=== PATIENT | male | born 1950 | race Asian ===

== ENCOUNTER 2018-09-08 04:15 | Inpatient (IN) | payer OTHER ==
[2018-09-08] MEDS ORDERED: morphine 2 MG INJ IV (05:30)
[2018-09-08] MEDS ORDERED: NACL 0.9% 3 ML SYG IV (05:30)
[2018-09-08] MEDS: HEPARIN 5,000 UNIT/1 ML VIAL SC ×3 (07:02→22:36)
[2018-09-08] MEDS ORDERED: GLUCOSE GEL 15 GRAM TUBE PO ×2 (13:00)
[2018-09-08] MEDS ORDERED: GLUCAGON 1 MG INJ IM (13:00)
[2018-09-08] MEDS ORDERED: DEXTROSE 50% 50 ML SYRINGE IV ×2 (13:00)
[2018-09-08] MEDS ORDERED: GLUCOSE GEL 15 GRAM TUBE BUCCAL (13:00)
[2018-09-08] MEDS: METOPROLOL 25 MG TAB PO ×2 (13:20→21:02)
[2018-09-08] MEDS: ASPIRIN (EC) 81 MG TAB PO (13:20)
[2018-09-08] MEDS: LISINOPRIL 20 MG TAB PO (13:20)
[2018-09-08] MEDS: INSULIN GLARGINE [LANTus] (100 UNITS/ML) SYG SC (15:11)
[2018-09-08] MEDS: INSULIN ASPART [NOVOLOG] 3 ML PEN SC ×4 (15:23→21:10)
[2018-09-08] MEDS: PANTOPRAZOLE (EC) 40 MG TAB PO (15:24)
[2018-09-08] MEDS: ATORVASTATIN 40 MG TAB PO (21:02)
[2018-09-09] MEDS: ACCU-CHEK XX (02:31)
[2018-09-09] MEDS: PANTOPRAZOLE (EC) 40 MG TAB PO (05:51)
[2018-09-09] MEDS: HEPARIN 5,000 UNIT/1 ML VIAL SC ×3 (05:57→22:11)
[2018-09-09] MEDS: INSULIN ASPART [NOVOLOG] 3 ML PEN SC ×7 (07:41→22:12)
[2018-09-09] MEDS: INSULIN GLARGINE [LANTus] (100 UNITS/ML) SYG SC (08:11)
[2018-09-09] MEDS: HYDROCODONE/APAP (5/325) TAB PO (08:15)
[2018-09-09] MEDS: METOPROLOL 25 MG TAB PO ×2 (12:26→20:21)
[2018-09-09] MEDS: LISINOPRIL 20 MG TAB PO (12:27)
[2018-09-09] MEDS: ASPIRIN (EC) 81 MG TAB PO (12:27)
[2018-09-09] MEDS: ATORVASTATIN 40 MG TAB PO (20:20)
[2018-09-10] MEDS: ACETAMINOPHEN 325 MG TAB PO ×2 (00:09→20:28)
[2018-09-10] MEDS: ONDANSETRON 4 MG INJ IV (00:09)
[2018-09-10] MEDS: ACCU-CHEK XX (02:00)
[2018-09-10] MEDS: PANTOPRAZOLE (EC) 40 MG TAB PO (06:55)
[2018-09-10] MEDS: HEPARIN 5,000 UNIT/1 ML VIAL SC ×3 (07:00→21:22)
[2018-09-10] MEDS: ASPIRIN (EC) 81 MG TAB PO (08:29)
[2018-09-10] MEDS: METOPROLOL 25 MG TAB PO ×2 (08:30→20:18)
[2018-09-10] MEDS: LISINOPRIL 20 MG TAB PO (08:30)
[2018-09-10] MEDS: INSULIN ASPART [NOVOLOG] 3 ML PEN SC ×7 (08:32→20:37)
[2018-09-10] MEDS: INSULIN GLARGINE [LANTus] (100 UNITS/ML) SYG SC (08:33)
[2018-09-10] MEDS: ATORVASTATIN 40 MG TAB PO (20:17)
[2018-09-11] MEDS: ACCU-CHEK XX (01:58)
[2018-09-11] MEDS: PANTOPRAZOLE (EC) 40 MG TAB PO (05:31)
[2018-09-11] MEDS: HEPARIN 5,000 UNIT/1 ML VIAL SC ×3 (05:39→21:17)
[2018-09-11] MEDS: LISINOPRIL 20 MG TAB PO (07:39)
[2018-09-11] MEDS: ASPIRIN (EC) 81 MG TAB PO (07:40)
[2018-09-11] MEDS: METOPROLOL 25 MG TAB PO ×2 (07:40→20:23)
[2018-09-11] MEDS: INSULIN GLARGINE [LANTus] (100 UNITS/ML) SYG SC (07:50)
[2018-09-11] MEDS: INSULIN ASPART [NOVOLOG] 3 ML PEN SC ×8 (07:50→21:12)
[2018-09-11 11:58] LABS: HEMOGLOBIN A1C 11.9 % (0-5.9)
[2018-09-11] MEDS: ATORVASTATIN 40 MG TAB PO (20:23)
[2018-09-11] MEDS ORDERED: morphine LIQ (10 MG/5 ML) CUP PO (22:00)
[2018-09-12] MEDS: ACCU-CHEK XX (02:01)
[2018-09-12 05:24] LABS: ADD MAN DIFF? NO
[2018-09-12 05:27] LABS: WHITE BLOOD COUNT 9.5 10^3/ul (4.8-10.8)
[2018-09-12 05:27] LABS: BASOPHILS % 0.4 % (0.0-2.0); EOSINOPHILS # 0.3 10^3/ul (0.0-0.5); EOSINOPHILS % 3.4 % (0.0-7.0); HEMATOCRIT 33.4 % (42.0-52.0); HEMOGLOBIN 11.3 g/dl (14.0-18.0); LYMPHOCYTES # 2.7 10^3/ul (0.8-2.9); MEAN CORPUSCULAR HGB CONC 33.8 g/dl (32.0-37.0); MEAN CORPUSCULAR VOLUME 85.6 fl (82.0-101.0); MEAN PLATELET VOLUME 10.2 fl (7.4-10.4); MONOCYTE # 0.7 10^3/ul (0.3-0.9); MONOCYTES % 6.9 % (0.0-11.0); NEUTROPHIL # 5.8 10^3/ul (1.6-7.5); NEUTROPHILS % 60.9 % (39.0-77.0); PLATELET COUNT 209 10^3/UL (140-415); RED CELL DISTRIBUTION WIDTH 11.6 % (11.5-14.5)
[2018-09-12] MEDS: PANTOPRAZOLE (EC) 40 MG TAB PO (05:31)
[2018-09-12] MEDS: HEPARIN 5,000 UNIT/1 ML VIAL SC ×3 (05:35→21:32)
[2018-09-12 05:47] LABS: ANION GAP 14 (5-13); BLOOD UREA NITROGEN 18 mg/dl (7-20); CALCIUM 9.4 mg/dl (8.4-10.2); CARBON DIOXIDE 25 mmol/L (21-31); CHLORIDE 101 mmol/L (97-110); CREATININE 0.94 mg/dl (0.61-1.24); Estimated GFR > 60 mL/min (>60); GLUCOSE 190 mg/dl (70-220); POTASSIUM 4.4 mmol/L (3.5-5.1); SODIUM 140 mmol/L (135-144)
[2018-09-12 05:50] LABS: PHOSPHORUS 3.3 mg/dl (2.5-4.9)
[2018-09-12 05:50] LABS: MAGNESIUM 1.9 mg/dl (1.7-2.5)
[2018-09-12] MEDS: ASPIRIN (EC) 81 MG TAB PO (07:58)
[2018-09-12] MEDS: METOPROLOL 25 MG TAB PO ×2 (07:59→21:11)
[2018-09-12] MEDS: LISINOPRIL 20 MG TAB PO (07:59)
[2018-09-12] MEDS: INSULIN GLARGINE [LANTus] (100 UNITS/ML) SYG SC (08:08)
[2018-09-12] MEDS: INSULIN ASPART [NOVOLOG] 3 ML PEN SC ×7 (08:08→21:00)
[2018-09-12] MEDS ORDERED: SALINE 0.65% 45 ML NAS SPRAY NASAL (10:30)
[2018-09-12] MEDS: GUAIFENESIN LA 600 MG TABSR PO ×2 (11:49→21:10)
[2018-09-12] MEDS: ATORVASTATIN 40 MG TAB PO (21:11)
[2018-09-13] MEDS: ACCU-CHEK XX (02:00)
[2018-09-13 05:46] LABS: ADD MAN DIFF? NO
[2018-09-13 05:49] LABS: WHITE BLOOD COUNT 9.7 10^3/ul (4.8-10.8)
[2018-09-13 05:49] LABS: BASOPHILS % 0.4 % (0.0-2.0); EOSINOPHILS # 0.3 10^3/ul (0.0-0.5); EOSINOPHILS % 2.8 % (0.0-7.0); HEMATOCRIT 34.5 % (42.0-52.0); HEMOGLOBIN 11.7 g/dl (14.0-18.0); LYMPHOCYTES # 2.8 10^3/ul (0.8-2.9); LYMPHOCYTES % 28.5 % (15.0-51.0); MEAN CORPUSCULAR HGB CONC 33.9 g/dl (32.0-37.0); MEAN CORPUSCULAR VOLUME 85.4 fl (82.0-101.0); MEAN PLATELET VOLUME 10.1 fl (7.4-10.4); MONOCYTE # 0.7 10^3/ul (0.3-0.9); MONOCYTES % 7.3 % (0.0-11.0); NEUTROPHIL # 5.9 10^3/ul (1.6-7.5); NEUTROPHILS % 60.7 % (39.0-77.0); PLATELET COUNT 213 10^3/UL (140-415); RED BLOOD COUNT 4.04 10^6/ul (4.70-6.10); RED CELL DISTRIBUTION WIDTH 11.9 % (11.5-14.5)
[2018-09-13] MEDS: PANTOPRAZOLE (EC) 40 MG TAB PO (06:12)
[2018-09-13] MEDS: HEPARIN 5,000 UNIT/1 ML VIAL SC ×3 (06:18→22:23)
[2018-09-13 06:22] LABS: ALBUMIN 3.6 g/dl (3.3-4.9); ANION GAP 6 (5-13); BLOOD UREA NITROGEN 14 mg/dl (7-20); CALCIUM 9.4 mg/dl (8.4-10.2); CARBON DIOXIDE 27 mmol/L (21-31); CHLORIDE 107 mmol/L (97-110); CREATININE 0.85 mg/dl (0.61-1.24); GLUCOSE 153 mg/dl (70-220); PHOSPHORUS 3.4 mg/dl (2.5-4.9); POTASSIUM 4.2 mmol/L (3.5-5.1); SODIUM 140 mmol/L (135-144)
[2018-09-13] MEDS: METOPROLOL 25 MG TAB PO ×2 (08:27→21:02)
[2018-09-13] MEDS: ASPIRIN (EC) 81 MG TAB PO (08:27)
[2018-09-13] MEDS: GUAIFENESIN LA 600 MG TABSR PO ×2 (08:27→21:01)
[2018-09-13] MEDS: LISINOPRIL 20 MG TAB PO (08:27)
[2018-09-13] MEDS: INSULIN ASPART [NOVOLOG] 3 ML PEN SC ×7 (08:41→21:00)
[2018-09-13] MEDS: INSULIN GLARGINE [LANTus] (100 UNITS/ML) SYG SC (08:41)
[2018-09-13] MEDS: ATORVASTATIN 40 MG TAB PO (21:01)
[2018-09-14] MEDS: ACCU-CHEK XX (02:00)
[2018-09-14] MEDS: PANTOPRAZOLE (EC) 40 MG TAB PO (05:36)
[2018-09-14] MEDS: HEPARIN 5,000 UNIT/1 ML VIAL SC ×4 (06:00→21:35)
[2018-09-14 06:12] LABS: ADD MAN DIFF? NO
[2018-09-14 06:23] LABS: BASOPHILS % 0.4 % (0.0-2.0); EOSINOPHILS # 0.3 10^3/ul (0.0-0.5); EOSINOPHILS % 2.7 % (0.0-7.0); HEMATOCRIT 32.9 % (42.0-52.0); HEMOGLOBIN 11.2 g/dl (14.0-18.0); LYMPHOCYTES # 3.3 10^3/ul (0.8-2.9); MEAN CORPUSCULAR HEMOGLOBIN 29.5 pg (29.0-33.0); MEAN CORPUSCULAR VOLUME 86.6 fl (82.0-101.0); MEAN PLATELET VOLUME 10.2 fl (7.4-10.4); MONOCYTE # 0.7 10^3/ul (0.3-0.9); NEUTROPHIL # 6.2 10^3/ul (1.6-7.5); NEUTROPHILS % 58.5 % (39.0-77.0); PLATELET COUNT 201 10^3/UL (140-415); RED CELL DISTRIBUTION WIDTH 11.8 % (11.5-14.5)
[2018-09-14 06:23] LABS: WHITE BLOOD COUNT 10.6 10^3/ul (4.8-10.8)
[2018-09-14] MEDS ORDERED: INSULIN HUMAN REGULAR 100 UNIT in SOD CHLORIDE 0.9% 99 ML IV (07:00)
[2018-09-14] MEDS ORDERED: PHENYLephrine 20MG IN 250 ML 250 ML IV (07:00)
[2018-09-14] MEDS ORDERED: EPINEPHrine 4 MG in DEXTROSE 5% 246 ML IV (07:00)
[2018-09-14 07:05] LABS: ALBUMIN 3.4 g/dl (3.3-4.9); ANION GAP 11 (5-13); BLOOD UREA NITROGEN 18 mg/dl (7-20); CALCIUM 9.3 mg/dl (8.4-10.2); CARBON DIOXIDE 25 mmol/L (21-31); CHLORIDE 102 mmol/L (97-110); CREATININE 0.94 mg/dl (0.61-1.24); GLUCOSE 217 mg/dl (70-220); MAGNESIUM 1.9 mg/dl (1.7-2.5); PHOSPHORUS 3.5 mg/dl (2.5-4.9); POTASSIUM 4.3 mmol/L (3.5-5.1); SODIUM 138 mmol/L (135-144)
[2018-09-14] MEDS: INSULIN ASPART [NOVOLOG] 3 ML PEN SC ×7 (07:48→21:00)
[2018-09-14] MEDS: INSULIN GLARGINE [LANTus] (100 UNITS/ML) SYG SC (07:50)
[2018-09-14] MEDS: GUAIFENESIN LA 600 MG TABSR PO ×2 (09:00→21:21)
[2018-09-14] MEDS: ASPIRIN (EC) 81 MG TAB PO (09:00)
[2018-09-14] MEDS: LISINOPRIL 20 MG TAB PO (10:33)
[2018-09-14] MEDS: METOPROLOL 25 MG TAB PO ×2 (10:39→21:21)
[2018-09-14] MEDS ORDERED: IODIXANOL LOCM 100 ML BTL (15:14)
[2018-09-14] MEDS ORDERED: NITROGLYCERIN (IC) 100 MCG/ML INJ (15:14)
[2018-09-14] MEDS ORDERED: LIDOCAINE 1% (MDV) 20 ML INJ (15:14)
[2018-09-14] MEDS ORDERED: HEPARIN 1000 UNITS/ML 10 ML INJ (15:14)
[2018-09-14] MEDS ORDERED: MIDAZOLAM 1 MG/ML 2 ML INJ (15:14)
[2018-09-14] MEDS ORDERED: VERAPAMIL 5 MG INJ ×2 (15:14→15:17)
[2018-09-14] MEDS ORDERED: SOD CHLORIDE 0.9% 500 ML (15:17)
[2018-09-14] MEDS ORDERED: BIVALIRUDIN 250MG /NS 50 ML 50 ML IVPB (15:24)
[2018-09-14] MEDS ORDERED: FENTAnyl 50 MCG/ML VIAL (15:24)
[2018-09-14] MEDS ORDERED: PHENYLephrine (100 MCG/ML) 5ML SYG (15:35)
[2018-09-14] MEDS ORDERED: ATROPINE 1 MG/10 ML SYRINGE (16:19)
[2018-09-14] MEDS: ISOSORBIDE DINITRATE 20 MG TAB PO (17:31)
[2018-09-14] MEDS: SOD CHLORIDE 0.9% 1,000 ML IV (18:23)
[2018-09-14] MEDS: ATORVASTATIN 40 MG TAB PO (21:20)
[2018-09-15] MEDS: ACCU-CHEK XX (02:00)
[2018-09-15] MEDS: PANTOPRAZOLE (EC) 40 MG TAB PO (05:53)
[2018-09-15] MEDS: HEPARIN 5,000 UNIT/1 ML VIAL SC ×3 (05:59→21:22)
[2018-09-15 06:06] LABS: ADD MAN DIFF? NO
[2018-09-15 06:28] LABS: BASOPHILS % 0.3 % (0.0-2.0); EOSINOPHILS # 0.1 10^3/ul (0.0-0.5); EOSINOPHILS % 0.6 % (0.0-7.0); HEMATOCRIT 32.5 % (42.0-52.0); HEMOGLOBIN 11.2 g/dl (14.0-18.0); LYMPHOCYTES # 1.6 10^3/ul (0.8-2.9); LYMPHOCYTES % 14.4 % (15.0-51.0); MEAN CORPUSCULAR HEMOGLOBIN 29.6 pg (29.0-33.0); MEAN CORPUSCULAR HGB CONC 34.5 g/dl (32.0-37.0); MEAN PLATELET VOLUME 10.2 fl (7.4-10.4); MONOCYTE # 0.7 10^3/ul (0.3-0.9); MONOCYTES % 6.7 % (0.0-11.0); NEUTROPHIL # 8.6 10^3/ul (1.6-7.5); NEUTROPHILS % 77.7 % (39.0-77.0); PLATELET COUNT 221 10^3/UL (140-415); RED BLOOD COUNT 3.78 10^6/ul (4.70-6.10); RED CELL DISTRIBUTION WIDTH 11.8 % (11.5-14.5)
[2018-09-15 06:45] LABS: ALANINE AMINOTRANSFERASE 26 IU/L (13-69); ALBUMIN 3.6 g/dl (3.3-4.9); ALBUMIN/GLOBULIN RATIO 1.09; ALKALINE PHOSPHATASE 107 IU/L (42-121); ANION GAP 11 (5-13); ASPARTATE AMINO TRANSFERASE 27 IU/L (15-46); BILIRUBIN,INDIRECT 0.8 mg/dl (0-1.1); BILIRUBIN,TOTAL 0.8 mg/dl (0.2-1.3); BLOOD UREA NITROGEN 18 mg/dl (7-20); CALCIUM 9.4 mg/dl (8.4-10.2); CARBON DIOXIDE 23 mmol/L (21-31); CHLORIDE 107 mmol/L (97-110); CREATININE 0.98 mg/dl (0.61-1.24); Estimated GFR > 60 mL/min (>60); GLUCOSE 215 mg/dl (70-220); POTASSIUM 4.2 mmol/L (3.5-5.1); SODIUM 141 mmol/L (135-144); TOTAL PROTEIN 6.9 g/dl (6.1-8.1)
[2018-09-15 07:16] LABS: ALBUMIN 3.5 g/dl (3.3-4.9); ANION GAP 9 (5-13); BLOOD UREA NITROGEN 17 mg/dl (7-20); CALCIUM 9.4 mg/dl (8.4-10.2); CARBON DIOXIDE 23 mmol/L (21-31); CHLORIDE 105 mmol/L (97-110); CREATININE 0.98 mg/dl (0.61-1.24); GLUCOSE 214 mg/dl (70-220); MAGNESIUM 1.7 mg/dl (1.7-2.5); PHOSPHORUS 3.1 mg/dl (2.5-4.9); POTASSIUM 4.3 mmol/L (3.5-5.1); SODIUM 137 mmol/L (135-144)
[2018-09-15] MEDS: GUAIFENESIN LA 600 MG TABSR PO ×2 (08:13→20:16)
[2018-09-15] MEDS: ASPIRIN (EC) 81 MG TAB PO (08:13)
[2018-09-15] MEDS: METOPROLOL 25 MG TAB PO ×2 (08:13→20:10)
[2018-09-15] MEDS: LISINOPRIL 20 MG TAB PO (08:13)
[2018-09-15] MEDS: ISOSORBIDE DINITRATE 20 MG TAB PO ×2 (08:14→20:10)
[2018-09-15] MEDS: INSULIN ASPART [NOVOLOG] 3 ML PEN SC ×7 (08:30→20:25)
[2018-09-15] MEDS: INSULIN GLARGINE [LANTus] (100 UNITS/ML) SYG SC (08:30)
[2018-09-15] MEDS: ONDANSETRON 4 MG INJ IV (08:46)
[2018-09-15] MEDS: ATORVASTATIN 40 MG TAB PO (20:09)
[2018-09-16] MEDS: ACCU-CHEK XX (01:46)
[2018-09-16] MEDS: PANTOPRAZOLE (EC) 40 MG TAB PO (05:39)
[2018-09-16] MEDS: HEPARIN 5,000 UNIT/1 ML VIAL SC ×3 (05:46→21:22)
[2018-09-16] MEDS: GUAIFENESIN LA 600 MG TABSR PO ×2 (08:11→21:09)
[2018-09-16] MEDS: ASPIRIN (EC) 81 MG TAB PO (08:11)
[2018-09-16] MEDS: METOPROLOL 25 MG TAB PO ×2 (08:12→21:09)
[2018-09-16] MEDS: ISOSORBIDE DINITRATE 20 MG TAB PO ×2 (08:12→21:09)
[2018-09-16] MEDS: LISINOPRIL 20 MG TAB PO (08:12)
[2018-09-16] MEDS: INSULIN ASPART [NOVOLOG] 3 ML PEN SC ×7 (08:20→21:23)
[2018-09-16] MEDS: INSULIN GLARGINE [LANTus] (100 UNITS/ML) SYG SC (08:20)
[2018-09-16] MEDS: ATORVASTATIN 40 MG TAB PO (21:09)
[2018-09-17] MEDS: ACCU-CHEK XX ×4 (02:50→23:00)
[2018-09-17] MEDS: PANTOPRAZOLE (EC) 40 MG TAB PO (05:15)
[2018-09-17 05:31] LABS: ADD MAN DIFF? NO
[2018-09-17 05:55] LABS: BASOPHILS % 0.3 % (0.0-2.0); EOSINOPHILS # 0.1 10^3/ul (0.0-0.5); EOSINOPHILS % 1.1 % (0.0-7.0); HEMATOCRIT 29.3 % (42.0-52.0); LYMPHOCYTES # 1.9 10^3/ul (0.8-2.9); LYMPHOCYTES % 15.7 % (15.0-51.0); MEAN CORPUSCULAR HEMOGLOBIN 29.3 pg (29.0-33.0); MEAN CORPUSCULAR HGB CONC 34.1 g/dl (32.0-37.0); MEAN CORPUSCULAR VOLUME 85.9 fl (82.0-101.0); MONOCYTES % 8.3 % (0.0-11.0); NEUTROPHIL # 8.7 10^3/ul (1.6-7.5); NEUTROPHILS % 74.1 % (39.0-77.0); PLATELET COUNT 183 10^3/UL (140-415); RED BLOOD COUNT 3.41 10^6/ul (4.70-6.10); RED CELL DISTRIBUTION WIDTH 11.5 % (11.5-14.5)
[2018-09-17 05:55] LABS: WHITE BLOOD COUNT 11.8 10^3/ul (4.8-10.8)
[2018-09-17 06:10] LABS: ALBUMIN 3.2 g/dl (3.3-4.9); ANION GAP 8 (5-13); BLOOD UREA NITROGEN 18 mg/dl (7-20); CALCIUM 9.1 mg/dl (8.4-10.2); CARBON DIOXIDE 24 mmol/L (21-31); CHLORIDE 103 mmol/L (97-110); CREATININE 1.08 mg/dl (0.61-1.24); GLUCOSE 329 mg/dl (70-220); MAGNESIUM 1.7 mg/dl (1.7-2.5); PHOSPHORUS 3.1 mg/dl (2.5-4.9); POTASSIUM 4.7 mmol/L (3.5-5.1); SODIUM 135 mmol/L (135-144)
[2018-09-17] MEDS ORDERED: TRANEXAMIC ACID 1,000 MG/10 ML VIAL (07:00)
[2018-09-17] MEDS ORDERED: MILRINONE LACTATE 20 MG/D5W 100 ML BAG (07:00)
[2018-09-17] MEDS ORDERED: EPINEPHrine 4 MG in DEXTROSE 5% 246 ML IV (07:00)
[2018-09-17] MEDS ORDERED: NA BICARBONATE 8.4% 50 ML SYG ×3 (07:00→18:16)
[2018-09-17] MEDS ORDERED: AMINOCAPROIC ACID 5 GM INJ ×2 (07:00→12:37)
[2018-09-17] MEDS ORDERED: INSULIN HUMAN REGULAR 100 UNIT in SOD CHLORIDE 0.9% 99 ML IV (07:00)
[2018-09-17] MEDS ORDERED: PHENYLephrine 20MG IN 250 ML 250 ML IV (07:00)
[2018-09-17] MEDS ORDERED: DOBUTamine/D5W 1 MG/ML 250 ML DRIP (07:00)
[2018-09-17] MEDS: ACETAMINOPHEN 325 MG TAB PO (07:42)
[2018-09-17] MEDS: INSULIN GLARGINE [LANTus] (100 UNITS/ML) SYG SC (07:50)
[2018-09-17] MEDS: INSULIN ASPART [NOVOLOG] 3 ML PEN SC ×4 (08:00→11:53)
[2018-09-17] MEDS: METOPROLOL 25 MG TAB PO ×2 (08:39→21:00)
[2018-09-17] MEDS: GUAIFENESIN LA 600 MG TABSR PO ×2 (08:40→21:00)
[2018-09-17] MEDS: ISOSORBIDE DINITRATE 20 MG TAB PO ×2 (08:40→21:00)
[2018-09-17] MEDS: LISINOPRIL 20 MG TAB PO (08:40)
[2018-09-17] MEDS: ASPIRIN (EC) 81 MG TAB PO (09:00)
[2018-09-17] MEDS: SOD CHLORIDE 0.45% 1,000 ML IV (11:30)
[2018-09-17] MEDS ORDERED: ETOMIDATE 20 MG INJ ×2 (12:22→15:15)
[2018-09-17] MEDS ORDERED: MIDAZOLAM 5 ML ×2 (12:22)
[2018-09-17] MEDS ORDERED: HEPARIN 1000 UNITS/ML 10 ML INJ ×2 (12:29→12:36)
[2018-09-17] MEDS ORDERED: ALBUMIN HUMAN 25% 200 ML (12:31)
[2018-09-17] MEDS ORDERED: NITROGLYCERIN 50 MG/D5W (PMX) 250 ML ×2 (12:32→15:15)
[2018-09-17] MEDS: PAPAVERINE 60 MG INJ (12:32)
[2018-09-17] MEDS: HEPARIN 1000 UNITS/ML 10 ML INJ (12:32)
[2018-09-17] MEDS: VANCOMYCIN 1 GM INJ (12:32)
[2018-09-17] MEDS ORDERED: POTASSIUM CHLORIDE 40 MEQ INJ (12:36)
[2018-09-17] MEDS ORDERED: CA CHLORIDE 10% 10 ML SYRINGE (12:36)
[2018-09-17] MEDS ORDERED: LIDOCAINE 100 MG SYRINGE (12:36)
[2018-09-17] MEDS ORDERED: PHENYLephrine 10 MG INJ (12:37)
[2018-09-17] MEDS ORDERED: MAGNESIUM SULFATE (MG) 50% 10 ML INJ (12:37)
[2018-09-17] MEDS ORDERED: MANNITOL 20% 500 ML (12:37)
[2018-09-17] MEDS ORDERED: ALBUMIN HUMAN 25% 100 ML (12:37)
[2018-09-17] MEDS ORDERED: LORAZEPAM 2 MG INJ IV (13:00)
[2018-09-17] MEDS ORDERED: ONDANSETRON 4 MG INJ IV (13:00)
[2018-09-17] MEDS ORDERED: ALBUMIN HUMAN 5% 250 ML IV (13:00)
[2018-09-17] MEDS ORDERED: MEPERIDINE 25 MG INJ IV (13:00)
[2018-09-17] MEDS ORDERED: LEVALBUTEROL (NEB) 0.63 MG/3 ML AMP HHN (13:00)
[2018-09-17] MEDS ORDERED: hydrALAzine 20 MG INJ IV (13:00)
[2018-09-17] MEDS ORDERED: FENTAnyl 50 MCG/ML VIAL IV ×2 (13:00)
[2018-09-17] MEDS: NORepinephrine 8MG/250 ML (PMX 250 ML IV (13:00)
[2018-09-17] MEDS ORDERED: DIPHENHYDRAMINE 50 MG INJ IV (13:00)
[2018-09-17] MEDS ORDERED: HYDROmorphONE 0.5 MG/0.5 ML SYG IV ×3 (13:00)
[2018-09-17] MEDS ORDERED: morphine 10 MG INJ IV (13:00)
[2018-09-17] MEDS ORDERED: MIDAZOLAM 1 MG/ML 2 ML INJ IV (13:00)
[2018-09-17] MEDS ORDERED: LEVALBUTEROL (NEB) 1.25 MG/0.5 ML AMP HHN (13:00)
[2018-09-17] MEDS ORDERED: morphine 2 MG INJ IV ×2 (13:00)
[2018-09-17] MEDS ORDERED: LABETALOL HCL 20MG INJ IV (13:00)
[2018-09-17] MEDS ORDERED: CEFAZOLIN 1 GM INJ (14:16)
[2018-09-17] MEDS: niCARdipine-NS 0.1MG/ML DRIP 200 ML IV (14:24)
[2018-09-17] MEDS ORDERED: niCARdipine 25 MG in SOD CHLORIDE 0.9% 240 ML IV (15:00)
[2018-09-17] MEDS ORDERED: PROPOFOL 100 ML (15:15)
[2018-09-17] MEDS ORDERED: ROCURONIUM 50 MG INJ (15:15)
[2018-09-17] MEDS ORDERED: PROPOFOL 20 ML (15:15)
[2018-09-17] MEDS ORDERED: DOPamine-D5W 1.6 MG/ML 250 ML (15:29)
[2018-09-17 16:05] LABS: IMMEDIATE SPIN CROSSMATCH 1
[2018-09-17] MEDS ORDERED: PROTAMINE 250 MG INJ ×2 (17:13→18:13)
[2018-09-17 17:17] LABS: IMMEDIATE SPIN CROSSMATCH 1 6
[2018-09-17 17:17] LABS: TYPE AND SCREEN 1
[2018-09-17] MEDS ORDERED: FUROSEMIDE 20 MG INJ ×2 (17:20→17:54)
[2018-09-17] MEDS ORDERED: MIDAZOLAM 1 MG/ML 2 ML INJ (17:22)
[2018-09-17] MEDS ORDERED: morphine 10 MG INJ (19:19)
[2018-09-17] MEDS ORDERED: PROPOFOL 100 ML IV ×2 (20:00→21:00)
[2018-09-17] MEDS ORDERED: MILRINONE LACTATE 100 ML IV (20:00)
[2018-09-17 20:27] LABS: AADO2 Arterial 557.5 mmHg (7.0-24.0); Arterial Base Excess -1.1 mmol/L (-3.0-3); Arterial Blood Gas Oxygen Sat 97.8 mmHG (95.0-98.0); Arterial COHb 0.3 % (0.0-3.0); Arterial HCO3 22.8 mmol/L (22.0-26.0); Arterial MetHb 0.5 % (0.0-1.5); Arterial pCO2 35.4 mmhg (35-45); MODE VENT - AC; Site A-Line
[2018-09-17 20:31] LABS: MODE VENT - AC; MetHgb Mixed Venous 0.5 %; Mixed Venous COHb 0.3 %; Mixed Venous Fraction OxyHgb 80.4 %; Mixed Venous Total Hemglobin 10.4 g/dl; Sample Type BLMV; Site VENOUS LINE
[2018-09-17 20:48] LABS: ADD MAN DIFF? NO
[2018-09-17 20:50] LABS: WHITE BLOOD COUNT 10.1 10^3/ul (4.8-10.8)
[2018-09-17 20:50] LABS: BASOPHILS % 0.1 % (0.0-2.0); EOSINOPHILS # 0.1 10^3/ul (0.0-0.5); EOSINOPHILS % 0.7 % (0.0-7.0); HEMOGLOBIN 9.4 g/dl (14.0-18.0); LYMPHOCYTES # 1.2 10^3/ul (0.8-2.9); LYMPHOCYTES % 12.3 % (15.0-51.0); MEAN CORPUSCULAR HEMOGLOBIN 28.6 pg (29.0-33.0); MEAN CORPUSCULAR HGB CONC 33.6 g/dl (32.0-37.0); MEAN CORPUSCULAR VOLUME 85.1 fl (82.0-101.0); MEAN PLATELET VOLUME 9.9 fl (7.4-10.4); MONOCYTE # 0.6 10^3/ul (0.3-0.9); MONOCYTES % 6.1 % (0.0-11.0); NEUTROPHIL # 8.1 10^3/ul (1.6-7.5); NEUTROPHILS % 80.3 % (39.0-77.0); PLATELET COUNT 122 10^3/UL (140-415); RED BLOOD COUNT 3.29 10^6/ul (4.70-6.10); RED CELL DISTRIBUTION WIDTH 12.4 % (11.5-14.5)
[2018-09-17] MEDS ORDERED: niCARdipine-NS 0.1MG/ML DRIP 200 ML IV (21:00)
[2018-09-17] MEDS: ATORVASTATIN 40 MG TAB PO (21:00)
[2018-09-17] MEDS ORDERED: DEXTROSE 50% 50 ML SYRINGE IV ×2 (21:00)
[2018-09-17 21:09] LABS: INR 1.33; PROTIME 16.6 Sec (11.9-14.9); PT RATIO 1.3
[2018-09-17 21:10] LABS: PARTIAL THROMBOPLASTIN TIME 32.4 Sec (23.0-35.0)
[2018-09-17 21:17] LABS: ANION GAP 13 (5-13); BLOOD UREA NITROGEN 16 mg/dl (7-20); CALCIUM 9.9 mg/dl (8.4-10.2); CARBON DIOXIDE 26 mmol/L (21-31); CHLORIDE 107 mmol/L (97-110); CREATININE 1.17 mg/dl (0.61-1.24); Estimated GFR > 60 mL/min (>60); GLUCOSE 211 mg/dl (70-220); MAGNESIUM 3.6 mg/dl (1.7-2.5); POTASSIUM 3.9 mmol/L (3.5-5.1); SODIUM 146 mmol/L (135-144)
[2018-09-17 21:58] LABS: PLATELET COUNT 104 10^3/UL (140-415)
[2018-09-17] MEDS: INSULIN HUMAN REGULAR 100 UNIT in SOD CHLORIDE 0.9% 99 ML IV (22:17)
[2018-09-17] MEDS: PROPOFOL 100 ML IV (22:18)
[2018-09-17] MEDS: MILRINONE 20MG in D5W 100 ML IV (22:18)
[2018-09-17] MEDS: DOBUTamine/D5W 1 MG/ML DRIP 250 ML IV (22:20)
[2018-09-17] MEDS: NITROGLYCERIN 50 MG/D5W (PMX) 250 ML IV (22:33)
[2018-09-17] MEDS ORDERED: MAGNESIUM SULFATE 1 GM/D5W 100 ML IVPB (23:30)
[2018-09-18] MEDS: POTASSIUM CHLORIDE 50 ML IVPB ×6 (00:10→13:44)
[2018-09-18] MEDS: morphine 10 MG INJ IV ×2 (00:20→00:27)
[2018-09-18] MEDS: ACCU-CHEK XX ×24 (00:26→23:59)
[2018-09-18] MEDS: POTASSIUM CHLORIDE 40 MEQ, CALCIUM CHLORIDE 10% 1 GM in DEXTROSE 5%-0.225% NACL 1,000 ML IV ×2 (00:28→17:06)
[2018-09-18 03:10] LABS: ADD MAN DIFF? NO
[2018-09-18 03:12] LABS: WHITE BLOOD COUNT 9.6 10^3/ul (4.8-10.8)
[2018-09-18 03:12] LABS: ABNORMAL IP MESSAGE 1; BASOPHILS % 0.2 % (0.0-2.0); EOSINOPHILS # 0.1 10^3/ul (0.0-0.5); EOSINOPHILS % 0.7 % (0.0-7.0); HEMATOCRIT 29.7 % (42.0-52.0); HEMOGLOBIN 10.1 g/dl (14.0-18.0); LYMPHOCYTES # 0.5 10^3/ul (0.8-2.9); LYMPHOCYTES % 5.6 % (15.0-51.0); MEAN CORPUSCULAR HEMOGLOBIN 28.9 pg (29.0-33.0); MEAN CORPUSCULAR VOLUME 85.1 fl (82.0-101.0); MEAN PLATELET VOLUME 10.2 fl (7.4-10.4); MONOCYTE # 0.6 10^3/ul (0.3-0.9); MONOCYTES % 6.6 % (0.0-11.0); NEUTROPHIL # 8.3 10^3/ul (1.6-7.5); NEUTROPHILS % 86.5 % (39.0-77.0); PLATELET COUNT 147 10^3/UL (140-415); POSITIVE DIFF @See below; RED BLOOD COUNT 3.49 10^6/ul (4.70-6.10); RED CELL DISTRIBUTION WIDTH 12.9 % (11.5-14.5)
[2018-09-18 03:31] LABS: INR 1.16; PROTIME 14.9 Sec (11.9-14.9); PT RATIO 1.2
[2018-09-18 03:32] LABS: ANION GAP 9 (5-13); BLOOD UREA NITROGEN 15 mg/dl (7-20); CALCIUM 9.7 mg/dl (8.4-10.2); CARBON DIOXIDE 26 mmol/L (21-31); CHLORIDE 111 mmol/L (97-110); CREATININE 1.28 mg/dl (0.61-1.24); Estimated GFR 56 mL/min (>60); GLUCOSE 228 mg/dl (70-220); MAGNESIUM 2.9 mg/dl (1.7-2.5); PARTIAL THROMBOPLASTIN TIME 37.1 Sec (23.0-35.0); POTASSIUM 4.6 mmol/L (3.5-5.1); SODIUM 146 mmol/L (135-144)
[2018-09-18] MEDS ORDERED: OXYCODONE/ACETAMINOPHEN (5/325) TAB PO ×2 (04:30)
[2018-09-18] MEDS ORDERED: HYDROmorphONE 0.5 MG/0.5 ML SYG IV ×4 (04:30)
[2018-09-18] MEDS ORDERED: MIDAZOLAM 1 MG/ML 2 ML INJ IV (04:30)
[2018-09-18] MEDS ORDERED: ONDANSETRON 4 MG INJ IV (04:30)
[2018-09-18] MEDS ORDERED: morphine 2 MG INJ IV ×2 (04:30)
[2018-09-18] MEDS: ACETAMINOPHEN 650 MG SUPP PR (04:46)
[2018-09-18] MEDS: morphine 2 MG INJ IV ×2 (04:47→15:08)
[2018-09-18] MEDS: DOBUTamine/D5W 1 MG/ML DRIP 250 ML IV ×4 (04:49→22:06)
[2018-09-18] MEDS: CEFAZOLIN 1 GM/50 ML (PMX) 50 ML IVPB ×3 (05:09→22:04)
[2018-09-18] MEDS: PANTOPRAZOLE (EC) 40 MG TAB PO (05:09)
[2018-09-18 05:30] LABS: ADD MAN DIFF? NO
[2018-09-18 05:39] LABS: WHITE BLOOD COUNT 8.7 10^3/ul (4.8-10.8)
[2018-09-18 05:39] LABS: ABNORMAL IP MESSAGE 1; BASOPHILS % 0.2 % (0.0-2.0); EOSINOPHILS % 0.5 % (0.0-7.0); HEMOGLOBIN 9.3 g/dl (14.0-18.0); LYMPHOCYTES # 0.5 10^3/ul (0.8-2.9); MEAN CORPUSCULAR HEMOGLOBIN 28.5 pg (29.0-33.0); MEAN CORPUSCULAR HGB CONC 33.2 g/dl (32.0-37.0); MEAN CORPUSCULAR VOLUME 85.9 fl (82.0-101.0); MEAN PLATELET VOLUME 10.4 fl (7.4-10.4); MONOCYTE # 0.7 10^3/ul (0.3-0.9); MONOCYTES % 7.6 % (0.0-11.0); NEUTROPHIL # 7.4 10^3/ul (1.6-7.5); NEUTROPHILS % 85.4 % (39.0-77.0); PLATELET COUNT 138 10^3/UL (140-415); POSITIVE DIFF @See below; RED BLOOD COUNT 3.26 10^6/ul (4.70-6.10); RED CELL DISTRIBUTION WIDTH 12.9 % (11.5-14.5)
[2018-09-18 06:19] LABS: ANION GAP 11 (5-13); BLOOD UREA NITROGEN 14 mg/dl (7-20); CALCIUM 8.9 mg/dl (8.4-10.2); CARBON DIOXIDE 23 mmol/L (21-31); CHLORIDE 112 mmol/L (97-110); CREATININE 1.16 mg/dl (0.61-1.24); GLUCOSE 194 mg/dl (70-220); MAGNESIUM 2.5 mg/dl (1.7-2.5); PHOSPHORUS 1.4 mg/dl (2.5-4.9); POTASSIUM 4.2 mmol/L (3.5-5.1); SODIUM 146 mmol/L (135-144)
[2018-09-18] MEDS: SOD CHLORIDE 0.45% 1,000 ML IV (07:29)
[2018-09-18] MEDS ORDERED: ALBUMIN HUMAN 25% 100 ML (07:41)
[2018-09-18] MEDS ORDERED: ALBUMIN HUMAN 5% 250 ML (07:43)
[2018-09-18] MEDS: ALBUMIN HUMAN 5% 250 ML IV (07:49)
[2018-09-18] MEDS: LISINOPRIL 20 MG TAB PO (08:36)
[2018-09-18] MEDS: GUAIFENESIN LA 600 MG TABSR PO ×2 (08:36→21:00)
[2018-09-18] MEDS: METOPROLOL 25 MG TAB PO ×2 (08:36→21:00)
[2018-09-18] MEDS: ISOSORBIDE DINITRATE 20 MG TAB PO ×2 (08:36→21:00)
[2018-09-18] MEDS: ACETAMINOPHEN 650MG/20.3ML CUP NGT (08:48)
[2018-09-18] MEDS: ASPIRIN (EC) 81 MG TAB PO (09:00)
[2018-09-18 09:18] LABS: ANISOCYTOSIS 1+ (0-0); BAND NEUTROPHILS #M 0.6 10^3/ul (0.0-0.6); BAND NEUTROPHILS % (M) 7 % (0-4); LYMPHOCYTES #M 0.7 10^3/ul (0.8-2.9); LYMPHOCYTES % (M) 9 % (15-51); MICROCYTOSIS 1+ (0-0); MONOCYTE #M 0.1 10^3/ul (0.3-0.9); MONOCYTES % (M) 2 % (0-11); PLATELET ESTIMATE DECREASED; SEG NEUT #M 7.2 10^3/ul (1.6-7.5); SEGMENTED NEUTROPHILS (M) % 82 % (39-77); SMUDGE%M 4 % (0-0); TARGET CELLS 1+ (0-0)
[2018-09-18] MEDS: INSULIN HUMAN REGULAR 100 UNIT in SOD CHLORIDE 0.9% 99 ML IV ×2 (09:18→22:08)
[2018-09-18] MEDS ORDERED: POTASSIUM PHOSPHATE 15 MM in SOD CHLORIDE 0.9% 250 ML IVPB (10:00)
[2018-09-18] MEDS: PANTOPRAZOLE 40 MG INJ IV (10:54)
[2018-09-18 11:13] LABS: ADD UMIC YES; UR ASCORBIC ACID NEGATIVE (NEGATIVE); UR BACTERIA MODERATE /HPF (NONE SEEN); UR BILIRUBIN (Dip) NEGATIVE (NEGATIVE); UR BLOOD (Dip) 3+ mg/dL (NEGATIVE); UR CLARITY CLOUDY (CLEAR); UR COLOR AMBER (YELLOW); UR GLUCOSE (Dip) NEGATIVE (NEGATIVE); UR HYALINE CAST FEW /HPF (NONE SEEN); UR KETONES (Dip) NEGATIVE (NEGATIVE); UR LEUKOCYTE ESTERASE (Dip) TRACE Leu/ul (NEGATIVE); UR MUCUS FEW /HPF (NONE SEEN); UR NITRITE (Dip) NEGATIVE (NEGATIVE); UR NONSQUAMOUS EPITHELIAL CELL 6 /HPF (NONE SEEN); UR RBC 67 /HPF (0-5); UR SPECIFIC GRAVITY (Dip) 1.024 (1.003-1.030); UR SQUAMOUS EPITHELIAL CELL FEW /HPF (FEW); UR TOTAL PROTEIN (Dip) 2+ mg/dl (NEGATIVE); UR UROBILINOGEN (Dip) 1+ mg/dL (NEGATIVE); UR WBC 80 /HPF (0-5)
[2018-09-18] MEDS: ASPIRIN 300 MG SUPP PR (11:24)
[2018-09-18] MEDS: PIPER-TAZO 3.375 GM IV (PMX) 100 ML IVPB ×3 (11:24→23:59)
[2018-09-18 11:35] LABS: SODIUM,URINE RANDOM 20 mmol/L (30-90)
[2018-09-18 11:35] LABS: CREATININE,URINE RANDOM 144.56 mg/dl (20-370)
[2018-09-18 12:03] LABS: OSMOLALITY,URINE 386 mOsm/kg (250-1200)
[2018-09-18 12:26] LABS: POTASSIUM 4.2 mmol/L (3.5-5.1)
[2018-09-18] MEDS: SOD CHLORIDE 0.9% 250 ML IV ×2 (12:28→12:58)
[2018-09-18] MEDS: POTASSIUM PHOSPHATE 15 MM in SOD CHLORIDE 0.9% 250 ML IVPB (12:33)
[2018-09-18] MEDS: FENTAnyl (DRIP) 1000 mcg/100mL 100 ML IV (13:43)
[2018-09-18] MEDS: PROPOFOL 100 ML IV (15:55)
[2018-09-18] MEDS: MIDAZOLAM (DRIP) 50 mg/50 mL 50 ML IV (17:06)
[2018-09-18 18:58] LABS: ADD MAN DIFF? NO
[2018-09-18 19:02] LABS: WHITE BLOOD COUNT 15.2 10^3/ul (4.8-10.8)
[2018-09-18 19:02] LABS: BASOPHILS % 0.3 % (0.0-2.0); EOSINOPHILS % 0.1 % (0.0-7.0); HEMATOCRIT 31.1 % (42.0-52.0); HEMOGLOBIN 10.2 g/dl (14.0-18.0); LYMPHOCYTES # 0.9 10^3/ul (0.8-2.9); LYMPHOCYTES % 5.7 % (15.0-51.0); MEAN CORPUSCULAR HEMOGLOBIN 28.7 pg (29.0-33.0); MEAN CORPUSCULAR HGB CONC 32.8 g/dl (32.0-37.0); MEAN CORPUSCULAR VOLUME 87.4 fl (82.0-101.0); MEAN PLATELET VOLUME 9.9 fl (7.4-10.4); MONOCYTE # 1.1 10^3/ul (0.3-0.9); MONOCYTES % 7.4 % (0.0-11.0); NEUTROPHIL # 13.1 10^3/ul (1.6-7.5); NEUTROPHILS % 85.6 % (39.0-77.0); PLATELET COUNT 148 10^3/UL (140-415); RED BLOOD COUNT 3.56 10^6/ul (4.70-6.10); RED CELL DISTRIBUTION WIDTH 13.3 % (11.5-14.5)
[2018-09-18 19:24] LABS: INR 1.27; PARTIAL THROMBOPLASTIN TIME 33.2 Sec (23.0-35.0); PT RATIO 1.3
[2018-09-18 19:36] LABS: ANION GAP 7 (5-13); BLOOD UREA NITROGEN 15 mg/dl (7-20); CALCIUM 9.6 mg/dl (8.4-10.2); CARBON DIOXIDE 24 mmol/L (21-31); CHLORIDE 113 mmol/L (97-110); CREATININE 1.49 mg/dl (0.61-1.24); Estimated GFR 47 mL/min (>60); GLUCOSE 190 mg/dl (70-220); MAGNESIUM 2.5 mg/dl (1.7-2.5); POTASSIUM 5.3 mmol/L (3.5-5.1); SODIUM 144 mmol/L (135-144)
[2018-09-18 19:46] LABS: COLLAGEN/EPI 115 Secs. (51-198)
[2018-09-18] MEDS: ATORVASTATIN 40 MG TAB PO (21:00)
[2018-09-19] MEDS: ACCU-CHEK XX ×24 (01:00→22:55)
[2018-09-19] MEDS: POTASSIUM CHLORIDE IV ×2 (04:57→21:41)
[2018-09-19] MEDS: ACETAMINOPHEN 650 MG SUPP PR ×2 (04:57→16:17)
[2018-09-19] MEDS: CALCIUM CHLORIDE IV ×2 (04:57→21:41)
[2018-09-19] MEDS: [UNRECOGNIZED DRUG - OTHER] IV ×2 (04:57→21:41)
[2018-09-19] MEDS: MIDAZOLAM (DRIP) 50 mg/50 mL 50 ML IV (05:03)
[2018-09-19] MEDS: CEFAZOLIN 1 GM/50 ML (PMX) 50 ML IVPB (05:07)
[2018-09-19] MEDS: PIPER-TAZO 3.375 GM IV (PMX) 100 ML IVPB ×4 (05:08→23:30)
[2018-09-19] MEDS: PANTOPRAZOLE 40 MG INJ IV (05:12)
[2018-09-19 05:14] LABS: ADD MAN DIFF? NO
[2018-09-19 05:24] LABS: WHITE BLOOD COUNT 15.1 10^3/ul (4.8-10.8)
[2018-09-19 05:24] LABS: BASOPHILS % 0.3 % (0.0-2.0); EOSINOPHILS # 0.1 10^3/ul (0.0-0.5); EOSINOPHILS % 0.5 % (0.0-7.0); HEMATOCRIT 31.8 % (42.0-52.0); HEMOGLOBIN 10.7 g/dl (14.0-18.0); LYMPHOCYTES # 0.9 10^3/ul (0.8-2.9); LYMPHOCYTES % 5.8 % (15.0-51.0); MEAN CORPUSCULAR HEMOGLOBIN 29.4 pg (29.0-33.0); MEAN CORPUSCULAR HGB CONC 33.6 g/dl (32.0-37.0); MEAN CORPUSCULAR VOLUME 87.4 fl (82.0-101.0); MEAN PLATELET VOLUME 10.4 fl (7.4-10.4); MONOCYTES % 6.5 % (0.0-11.0); NEUTROPHILS % 86.2 % (39.0-77.0); PLATELET COUNT 148 10^3/UL (140-415); RED BLOOD COUNT 3.64 10^6/ul (4.70-6.10); RED CELL DISTRIBUTION WIDTH 13.2 % (11.5-14.5)
[2018-09-19] MEDS: FENTAnyl (DRIP) 1000 mcg/100mL 100 ML IV (05:33)
[2018-09-19 05:45] LABS: ALBUMIN 3.1 g/dl (3.3-4.9); ANION GAP 9 (5-13); BLOOD UREA NITROGEN 13 mg/dl (7-20); CALCIUM 9.7 mg/dl (8.4-10.2); CARBON DIOXIDE 21 mmol/L (21-31); CHLORIDE 113 mmol/L (97-110); CREATININE 1.38 mg/dl (0.61-1.24); GLUCOSE 184 mg/dl (70-220); MAGNESIUM 2.2 mg/dl (1.7-2.5); PHOSPHORUS 3.3 mg/dl (2.5-4.9); POTASSIUM 4.6 mmol/L (3.5-5.1); SODIUM 143 mmol/L (135-144)
[2018-09-19 06:17] LABS: ANION GAP 10 (5-13); BLOOD UREA NITROGEN 13 mg/dl (7-20); CALCIUM 9.7 mg/dl (8.4-10.2); CARBON DIOXIDE 21 mmol/L (21-31); CHLORIDE 112 mmol/L (97-110); CREATININE 1.38 mg/dl (0.61-1.24); Estimated GFR 51 mL/min (>60); GLUCOSE 183 mg/dl (70-220); PHOSPHORUS 3.3 mg/dl (2.5-4.9); POTASSIUM 4.6 mmol/L (3.5-5.1); SODIUM 143 mmol/L (135-144)
[2018-09-19] MEDS: DOBUTamine/D5W 1 MG/ML DRIP 250 ML IV ×2 (06:51→19:16)
[2018-09-19 07:32] LABS: AADO2 Arterial 167.6 mmHg (7.0-24.0); Arterial Base Excess -2.7 mmol/L (-3.0-3); Arterial COHb 0.3 % (0.0-3.0); Arterial Fraction of Oxyhgb 94.6 % (93.0-99.0); Arterial HCO3 20.9 mmol/L (22.0-26.0); Arterial MetHb 0.1 % (0.0-1.5); Arterial pCO2 32.2 mmhg (35-45); MODE VENT - AC; Site A-Line
[2018-09-19] MEDS: ISOSORBIDE DINITRATE 20 MG TAB PO ×2 (08:08→20:10)
[2018-09-19] MEDS: LISINOPRIL 20 MG TAB PO (08:09)
[2018-09-19] MEDS: METOPROLOL 25 MG TAB PO ×2 (08:09→20:09)
[2018-09-19] MEDS: GUAIFENESIN LA 600 MG TABSR PO ×2 (08:09→20:10)
[2018-09-19] MEDS: ASPIRIN 300 MG SUPP PR (08:44)
[2018-09-19] MEDS: morphine 2 MG INJ IV (12:00)
[2018-09-19] MEDS: INSULIN HUMAN REGULAR 100 UNIT in SOD CHLORIDE 0.9% 99 ML IV (12:40)
[2018-09-19 15:37] LABS: CREATININE, RANDOM URINE 132 mg/dL (20-320); MICROALBUMIN 27.4 mg/dL; MICROALBUMIN/CREATININE RATIO 208 (<30)
[2018-09-19] MEDS: ALBUMIN HUMAN 5% 250 ML IV ×2 (16:08→21:42)
[2018-09-19] MEDS: ATORVASTATIN 40 MG TAB PO (20:09)
[2018-09-20] MEDS: ACCU-CHEK XX ×24 (00:02→23:10)
[2018-09-20 05:19] LABS: ADD MAN DIFF? NO
[2018-09-20] MEDS: PIPER-TAZO 3.375 GM IV (PMX) 100 ML IVPB ×4 (05:27→23:40)
[2018-09-20] MEDS: PANTOPRAZOLE 40 MG INJ IV (05:27)
[2018-09-20 05:28] LABS: WHITE BLOOD COUNT 14.1 10^3/ul (4.8-10.8)
[2018-09-20 05:28] LABS: BASOPHILS % 0.1 % (0.0-2.0); EOSINOPHILS # 0.2 10^3/ul (0.0-0.5); EOSINOPHILS % 1.6 % (0.0-7.0); HEMATOCRIT 29.7 % (42.0-52.0); HEMOGLOBIN 9.8 g/dl (14.0-18.0); LYMPHOCYTES # 1.4 10^3/ul (0.8-2.9); LYMPHOCYTES % 10.2 % (15.0-51.0); MEAN CORPUSCULAR HEMOGLOBIN 28.9 pg (29.0-33.0); MEAN CORPUSCULAR VOLUME 87.6 fl (82.0-101.0); MEAN PLATELET VOLUME 10.7 fl (7.4-10.4); MONOCYTE # 0.8 10^3/ul (0.3-0.9); MONOCYTES % 5.5 % (0.0-11.0); NEUTROPHIL # 11.6 10^3/ul (1.6-7.5); PLATELET COUNT 139 10^3/UL (140-415); POSITIVE DIFF @See below; RED BLOOD COUNT 3.39 10^6/ul (4.70-6.10); RED CELL DISTRIBUTION WIDTH 13.5 % (11.5-14.5)
[2018-09-20] MEDS: FENTAnyl (DRIP) 1000 mcg/100mL 100 ML IV (05:35)
[2018-09-20 05:54] LABS: ANION GAP 7 (5-13); BLOOD UREA NITROGEN 13 mg/dl (7-20); CALCIUM 9.6 mg/dl (8.4-10.2); CARBON DIOXIDE 20 mmol/L (21-31); CHLORIDE 111 mmol/L (97-110); CREATININE 1.06 mg/dl (0.61-1.24); Estimated GFR > 60 mL/min (>60); GLUCOSE 131 mg/dl (70-220); PHOSPHORUS 3.7 mg/dl (2.5-4.9); POTASSIUM 4.6 mmol/L (3.5-5.1); SODIUM 138 mmol/L (135-144)
[2018-09-20] MEDS: ACETAMINOPHEN 650MG/20.3ML CUP NGT (06:10)
[2018-09-20] MEDS: NORepinephrine 8MG/250 ML (PMX 250 ML IV (07:05)
[2018-09-20 07:31] LABS: AADO2 Arterial 187.4 mmHg (7.0-24.0); Arterial Base Excess -4.4 mmol/L (-3.0-3); Arterial Blood Gas Oxygen Sat 92.9 mmHG (95.0-98.0); Arterial COHb 0.3 % (0.0-3.0); Arterial Fraction of Oxyhgb 92.5 % (93.0-99.0); Arterial HCO3 18.4 mmol/L (22.0-26.0); Arterial MetHb 0.1 % (0.0-1.5); Arterial pCO2 27.1 mmhg (35-45); MODE VENT - AC; Site A-Line
[2018-09-20] MEDS: ASPIRIN 81 MG TAB NGT (08:27)
[2018-09-20] MEDS: ENOXAPARIN 30 MG/0.3 ML SYG SC (08:35)
[2018-09-20] MEDS: GUAIFENESIN LA 600 MG TABSR PO ×2 (08:36→21:00)
[2018-09-20] MEDS: FUROSEMIDE 20 MG INJ IV (08:46)
[2018-09-20] MEDS ORDERED: IPRATROPIUM (HFA) 12.9 GM INHALER INH (10:30)
[2018-09-20] MEDS: INSULIN HUMAN REGULAR 100 UNIT in SOD CHLORIDE 0.9% 99 ML IV (10:32)
[2018-09-20] MEDS: ALBUTEROL HFA 8 GM INHALER INH ×2 (13:02→15:20)
[2018-09-20] MEDS: DEXMEDETOMIDINE HCL 200 MCG in SOD CHLORIDE 0.9% 48 ML IV (13:21)
[2018-09-20] MEDS: CALCIUM CHLORIDE IV (14:45)
[2018-09-20] MEDS: POTASSIUM CHLORIDE IV (14:45)
[2018-09-20] MEDS: [UNRECOGNIZED DRUG - OTHER] IV (14:45)
[2018-09-20] MEDS ORDERED: VANCOMYCIN IV PER PHARMACY XX (16:00)
[2018-09-20 16:13] LABS: AADO2 Arterial 105.4 mmHg (7.0-24.0); Arterial Base Excess -3.6 mmol/L (-3.0-3); Arterial Blood Gas Oxygen Sat 93.3 mmHG (95.0-98.0); Arterial COHb 0.1 % (0.0-3.0); Arterial Fraction of Oxyhgb 93.2 % (93.0-99.0); Arterial HCO3 19.2 mmol/L (22.0-26.0); Arterial MetHb 0 % (0.0-1.5); Arterial pCO2 28.2 mmhg (35-45); Blood Gas PS 10; MODE VENT - CPAP; Site PUL ART LINE
[2018-09-20] MEDS: ACETAMINOPHEN 650 MG SUPP PR (17:29)
[2018-09-20] MEDS: VANCOMYCIN HCL 1.25 GM in SOD CHLORIDE 0.9% 250 ML IVPB (19:25)
[2018-09-20] MEDS: morphine 2 MG INJ IV ×2 (19:39→23:17)
[2018-09-20] MEDS: NITROGLYCERIN 50 MG/D5W (PMX) 250 ML IV (20:02)
[2018-09-20] MEDS: ATORVASTATIN 40 MG TAB PO (21:00)
[2018-09-20] MEDS: ALBUTEROL/IPRATROPIUM (NEB) 3 ML AMP HHN (21:00)
[2018-09-21] MEDS: NITROGLYCERIN 50 MG/D5W (PMX) 250 ML IV ×3 (00:56→07:33)
[2018-09-21] MEDS: ACCU-CHEK XX ×24 (00:56→23:17)
[2018-09-21] MEDS: ALBUTEROL/IPRATROPIUM (NEB) 3 ML AMP HHN ×4 (01:17→21:23)
[2018-09-21 04:56] LABS: ADD MAN DIFF? NO
[2018-09-21 05:03] LABS: WHITE BLOOD COUNT 14.4 10^3/ul (4.8-10.8)
[2018-09-21 05:03] LABS: BASOPHILS % 0.2 % (0.0-2.0); EOSINOPHILS # 0.1 10^3/ul (0.0-0.5); EOSINOPHILS % 0.8 % (0.0-7.0); HEMATOCRIT 30.5 % (42.0-52.0); HEMOGLOBIN 10.2 g/dl (14.0-18.0); LYMPHOCYTES # 1.7 10^3/ul (0.8-2.9); LYMPHOCYTES % 11.8 % (15.0-51.0); MEAN CORPUSCULAR HEMOGLOBIN 29.1 pg (29.0-33.0); MEAN CORPUSCULAR HGB CONC 33.4 g/dl (32.0-37.0); MEAN CORPUSCULAR VOLUME 86.9 fl (82.0-101.0); MEAN PLATELET VOLUME 10.7 fl (7.4-10.4); MONOCYTE # 0.8 10^3/ul (0.3-0.9); MONOCYTES % 5.6 % (0.0-11.0); NEUTROPHIL # 11.6 10^3/ul (1.6-7.5); NEUTROPHILS % 80.8 % (39.0-77.0); PLATELET COUNT 130 10^3/UL (140-415); POSITIVE DIFF @See below; RED BLOOD COUNT 3.51 10^6/ul (4.70-6.10); RED CELL DISTRIBUTION WIDTH 12.9 % (11.5-14.5)
[2018-09-21 05:18] LABS: ANION GAP 10 (5-13); BLOOD UREA NITROGEN 20 mg/dl (7-20); CALCIUM 9.2 mg/dl (8.4-10.2); CARBON DIOXIDE 20 mmol/L (21-31); CHLORIDE 107 mmol/L (97-110); CREATININE 1.24 mg/dl (0.61-1.24); Estimated GFR 58 mL/min (>60); GLUCOSE 167 mg/dl (70-220); MAGNESIUM 1.8 mg/dl (1.7-2.5); PHOSPHORUS 4.2 mg/dl (2.5-4.9); POTASSIUM 4.1 mmol/L (3.5-5.1); SODIUM 137 mmol/L (135-144)
[2018-09-21] MEDS: PANTOPRAZOLE 40 MG INJ IV (05:36)
[2018-09-21] MEDS: PIPER-TAZO 3.375 GM IV (PMX) 100 ML IVPB ×3 (05:36→17:37)
[2018-09-21] MEDS: VANCOMYCIN 750 MG (PMX) 250 ML IVPB ×2 (06:13→18:11)
[2018-09-21] MEDS: POTASSIUM CHLORIDE IV (06:16)
[2018-09-21] MEDS: CALCIUM CHLORIDE IV (06:16)
[2018-09-21] MEDS: [UNRECOGNIZED DRUG - OTHER] IV (06:16)
[2018-09-21] MEDS ORDERED: D5-0.2 NACL + KCL 20 MEQ 1,000 ML IV (07:00)
[2018-09-21] MEDS: GUAIFENESIN LA 600 MG TABSR PO ×2 (08:37→21:16)
[2018-09-21] MEDS: FUROSEMIDE 40 MG INJ IV (08:37)
[2018-09-21] MEDS: ASPIRIN 81 MG TAB NGT (08:37)
[2018-09-21] MEDS: ENOXAPARIN 30 MG/0.3 ML SYG SC (08:42)
[2018-09-21] MEDS: INSULIN HUMAN REGULAR 100 UNIT in SOD CHLORIDE 0.9% 99 ML IV (10:32)
[2018-09-21] MEDS: ACETAMINOPHEN 325 MG TAB PO (12:11)
[2018-09-21] MEDS: MAGNESIUM SULFATE 2 GM/50 ML 50 ML IVPB (14:29)
[2018-09-21] MEDS: POTASSIUM CHLORIDE (SR) 20 MEQ TAB PO (14:30)
[2018-09-21] MEDS: LISINOPRIL 5 MG TAB PO ×2 (14:31→21:16)
[2018-09-21] MEDS: ATORVASTATIN 40 MG TAB PO (21:16)
[2018-09-21] MEDS: ONDANSETRON 4 MG INJ IV (21:16)
[2018-09-21] MEDS: hydrALAzine 20 MG INJ IV (21:35)
[2018-09-21] MEDS: morphine 2 MG INJ IV (22:23)
[2018-09-22] MEDS: PIPER-TAZO 3.375 GM IV (PMX) 100 ML IVPB ×4 (00:29→17:04)
[2018-09-22] MEDS: ACCU-CHEK XX ×24 (01:08→23:45)
[2018-09-22] MEDS: ALBUTEROL/IPRATROPIUM (NEB) 3 ML AMP HHN ×5 (01:27→20:00)
[2018-09-22] MEDS: PANTOPRAZOLE 40 MG INJ IV (05:22)
[2018-09-22] MEDS: FUROSEMIDE 40 MG INJ IV (05:26)
[2018-09-22 05:35] LABS: ADD MAN DIFF? NO
[2018-09-22 05:38] LABS: WHITE BLOOD COUNT 15.1 10^3/ul (4.8-10.8)
[2018-09-22 05:38] LABS: BASOPHILS % 0.2 % (0.0-2.0); EOSINOPHILS % 0.3 % (0.0-7.0); HEMATOCRIT 33.3 % (42.0-52.0); HEMOGLOBIN 11.3 g/dl (14.0-18.0); LYMPHOCYTES # 1.2 10^3/ul (0.8-2.9); LYMPHOCYTES % 8.1 % (15.0-51.0); MEAN CORPUSCULAR HEMOGLOBIN 28.8 pg (29.0-33.0); MEAN CORPUSCULAR HGB CONC 33.9 g/dl (32.0-37.0); MEAN CORPUSCULAR VOLUME 84.9 fl (82.0-101.0); MONOCYTE # 1.2 10^3/ul (0.3-0.9); MONOCYTES % 7.7 % (0.0-11.0); NEUTROPHIL # 12.6 10^3/ul (1.6-7.5); PLATELET COUNT 183 10^3/UL (140-415); RED BLOOD COUNT 3.92 10^6/ul (4.70-6.10)
[2018-09-22 05:58] LABS: MAGNESIUM 2.4 mg/dl (1.7-2.5)
[2018-09-22 06:02] LABS: ALANINE AMINOTRANSFERASE 390 IU/L (13-69); ALBUMIN 3.2 g/dl (3.3-4.9); ALBUMIN/GLOBULIN RATIO 0.96; ALKALINE PHOSPHATASE 129 IU/L (42-121); ANION GAP 11 (5-13); ASPARTATE AMINO TRANSFERASE 342 IU/L (15-46); BILIRUBIN,INDIRECT 1.9 mg/dl (0-1.1); BILIRUBIN,TOTAL 2.7 mg/dl (0.2-1.3); BLOOD UREA NITROGEN 26 mg/dl (7-20); CALCIUM 9.1 mg/dl (8.4-10.2); CARBON DIOXIDE 23 mmol/L (21-31); CHLORIDE 105 mmol/L (97-110); CREATININE 1.23 mg/dl (0.61-1.24); Estimated GFR 59 mL/min (>60); GLUCOSE 121 mg/dl (70-220); POTASSIUM 3.9 mmol/L (3.5-5.1); SODIUM 139 mmol/L (135-144); TOTAL PROTEIN 6.5 g/dl (6.1-8.1)
[2018-09-22 06:06] LABS: B-TYPE NATRIURETIC PEPTIDE 8960 PG/ML (0-125)
[2018-09-22] MEDS: VANCOMYCIN 750 MG (PMX) 250 ML IVPB ×2 (06:39→17:51)
[2018-09-22] MEDS: ENOXAPARIN 30 MG/0.3 ML SYG SC ×2 (08:48→09:00)
[2018-09-22] MEDS: ASPIRIN 81 MG TAB NGT ×2 (09:00→09:37)
[2018-09-22] MEDS: METOPROLOL (XL) 25 MG TAB PO (09:22)
[2018-09-22] MEDS: GUAIFENESIN LA 600 MG TABSR PO ×2 (09:22→21:42)
[2018-09-22] MEDS: morphine 2 MG INJ IV (09:23)
[2018-09-22] MEDS: LISINOPRIL 5 MG TAB PO ×2 (09:23→21:42)
[2018-09-22 16:58] LABS: INR 1.21; PROTIME 15.4 Sec (11.9-14.9); PT RATIO 1.2
[2018-09-22] MEDS: LIDOCAINE 1% (MPF) 5 ML VIAL (18:32)
[2018-09-22 20:17] LABS: FLD MN% 48.5 %; FLD PMN% 51.5 %; FLD RBC 106000 /uL; FLD WBC 785 /cmm
[2018-09-22 20:21] LABS: FLUID LD 897 U/L; FLUID TYPE THORACENTESIS FLUID
[2018-09-22 20:22] LABS: FLUID GLUCOSE 92 mg/dl; FLUID TOTAL PROTEIN 2.9 g/dl; FLUID TYPE THORACENTESIS FLUID
[2018-09-22 21:14] LABS: FLD CLARITY BLOODY; FLD COLOR RED
[2018-09-22 21:14] LABS: FLD TYPE THORACENTHESIS
[2018-09-22] MEDS: ATORVASTATIN 40 MG TAB PO (21:42)
[2018-09-23] MEDS: PIPER-TAZO 3.375 GM IV (PMX) 100 ML IVPB ×3 (00:52→12:32)
[2018-09-23] MEDS: ACCU-CHEK XX ×9 (01:10→08:00)
[2018-09-23] MEDS: ALBUTEROL/IPRATROPIUM (NEB) 3 ML AMP HHN ×5 (02:00→20:19)
[2018-09-23 04:52] LABS: Allen Test ACCEPTAB; Arterial Base Excess -3.4 mmol/L (-3.0-3); Arterial COHb 0.3 % (0.0-3.0); Arterial Fraction of Oxyhgb 91.6 % (93.0-99.0); Arterial HCO3 19.8 mmol/L (22.0-26.0); Arterial MetHb 0.1 % (0.0-1.5); Arterial pCO2 30.1 mmhg (35-45); MODE NASAL CANNULA
[2018-09-23 05:16] LABS: ADD MAN DIFF? NO
[2018-09-23 05:30] LABS: WHITE BLOOD COUNT 13.1 10^3/ul (4.8-10.8)
[2018-09-23 05:30] LABS: BASOPHILS % 0.2 % (0.0-2.0); EOSINOPHILS # 0.1 10^3/ul (0.0-0.5); EOSINOPHILS % 0.6 % (0.0-7.0); HEMATOCRIT 33.4 % (42.0-52.0); HEMOGLOBIN 10.8 g/dl (14.0-18.0); LYMPHOCYTES # 1.1 10^3/ul (0.8-2.9); LYMPHOCYTES % 8.6 % (15.0-51.0); MEAN CORPUSCULAR HEMOGLOBIN 28.6 pg (29.0-33.0); MEAN CORPUSCULAR HGB CONC 32.3 g/dl (32.0-37.0); MEAN CORPUSCULAR VOLUME 88.4 fl (82.0-101.0); MEAN PLATELET VOLUME 10.2 fl (7.4-10.4); MONOCYTE # 1.1 10^3/ul (0.3-0.9); NEUTROPHIL # 10.7 10^3/ul (1.6-7.5); NEUTROPHILS % 81.6 % (39.0-77.0); PLATELET COUNT 204 10^3/UL (140-415); RED BLOOD COUNT 3.78 10^6/ul (4.70-6.10); RED CELL DISTRIBUTION WIDTH 12.9 % (11.5-14.5)
[2018-09-23] MEDS: PANTOPRAZOLE 40 MG INJ IV (05:39)
[2018-09-23] MEDS: VANCOMYCIN 750 MG (PMX) 250 ML IVPB (05:39)
[2018-09-23] MEDS: FUROSEMIDE 40 MG INJ IV (05:44)
[2018-09-23 06:10] LABS: MAGNESIUM 2.3 mg/dl (1.7-2.5)
[2018-09-23 06:17] LABS: Estimated GFR > 60 mL/min (>60)
[2018-09-23 06:18] LABS: ALANINE AMINOTRANSFERASE 329 IU/L (13-69); ALBUMIN 3.1 g/dl (3.3-4.9); ALBUMIN/GLOBULIN RATIO 1.03; ALKALINE PHOSPHATASE 153 IU/L (42-121); ANION GAP 14 (5-13); ASPARTATE AMINO TRANSFERASE 261 IU/L (15-46); BILIRUBIN,INDIRECT 1.6 mg/dl (0-1.1); BILIRUBIN,TOTAL 2.4 mg/dl (0.2-1.3); BLOOD UREA NITROGEN 28 mg/dl (7-20); CALCIUM 8.6 mg/dl (8.4-10.2); CARBON DIOXIDE 20 mmol/L (21-31); CHLORIDE 105 mmol/L (97-110); CREATININE 0.96 mg/dl (0.61-1.24); GLUCOSE 109 mg/dl (70-220); POTASSIUM 3.8 mmol/L (3.5-5.1); SODIUM 139 mmol/L (135-144); TOTAL PROTEIN 6.1 g/dl (6.1-8.1)
[2018-09-23] MEDS: morphine 2 MG INJ IV ×2 (08:22→17:46)
[2018-09-23] MEDS: NITROGLYCERIN (SL) 0.4 MG TAB SL ×3 (08:26→08:58)
[2018-09-23] MEDS ORDERED: NITROGLYCERIN 50 MG/D5W (PMX) 250 ML IV (08:30)
[2018-09-23] MEDS ORDERED: GLUCOSE GEL 15 GRAM TUBE PO ×2 (08:30)
[2018-09-23] MEDS ORDERED: GLUCOSE GEL 15 GRAM TUBE BUCCAL (08:30)
[2018-09-23] MEDS ORDERED: DEXTROSE 50% 50 ML SYRINGE IV ×2 (08:30)
[2018-09-23] MEDS ORDERED: GLUCAGON 1 MG INJ IM (08:30)
[2018-09-23] MEDS: GUAIFENESIN LA 600 MG TABSR PO ×2 (08:56→21:40)
[2018-09-23] MEDS: METOPROLOL (XL) 25 MG TAB PO (08:57)
[2018-09-23] MEDS: ASPIRIN 81 MG TAB NGT (08:57)
[2018-09-23] MEDS: LISINOPRIL 5 MG TAB PO ×2 (08:57→21:41)
[2018-09-23] MEDS: ENOXAPARIN 30 MG/0.3 ML SYG SC ×2 (09:00→12:33)
[2018-09-23 09:42] LABS: CK-MB 0.86 ng/ml (0.0-2.4)
[2018-09-23] MEDS: INSULIN ASPART [NOVOLOG] 3 ML PEN SC ×5 (12:34→21:00)
[2018-09-23 14:27] LABS: CREATINE KINASE 84 IU/L (23-200)
[2018-09-23 14:38] LABS: CK INDEX 0.8; CK-MB 0.65 ng/ml (0.0-2.4)
[2018-09-23 20:18] LABS: IMMEDIATE SPIN CROSSMATCH 1 2
[2018-09-23] MEDS: CEFEPIME 1GM/50 ML (PMX) 50 ML IVPB (21:40)
[2018-09-23] MEDS: DOXYCYCLINE 100 MG TAB PO (21:41)
[2018-09-23] MEDS: ATORVASTATIN 40 MG TAB PO (21:43)
[2018-09-24] MEDS: ACCU-CHEK XX (01:27)
[2018-09-24] MEDS: ALBUTEROL/IPRATROPIUM (NEB) 3 ML AMP HHN ×4 (01:35→21:57)
[2018-09-24 05:20] LABS: ADD MAN DIFF? NO
[2018-09-24 05:32] LABS: BASOPHILS % 0.2 % (0.0-2.0); EOSINOPHILS # 0.1 10^3/ul (0.0-0.5); EOSINOPHILS % 0.7 % (0.0-7.0); HEMATOCRIT 38.9 % (42.0-52.0); LYMPHOCYTES # 1.1 10^3/ul (0.8-2.9); LYMPHOCYTES % 8.9 % (15.0-51.0); MEAN CORPUSCULAR HEMOGLOBIN 28.8 pg (29.0-33.0); MEAN CORPUSCULAR HGB CONC 33.4 g/dl (32.0-37.0); MEAN CORPUSCULAR VOLUME 86.1 fl (82.0-101.0); MEAN PLATELET VOLUME 9.7 fl (7.4-10.4); MONOCYTE # 0.9 10^3/ul (0.3-0.9); MONOCYTES % 7.5 % (0.0-11.0); NEUTROPHIL # 9.9 10^3/ul (1.6-7.5); NEUTROPHILS % 81.6 % (39.0-77.0); PLATELET COUNT 214 10^3/UL (140-415); RED BLOOD COUNT 4.52 10^6/ul (4.70-6.10)
[2018-09-24 05:32] LABS: WHITE BLOOD COUNT 12.1 10^3/ul (4.8-10.8)
[2018-09-24 06:04] LABS: ANION GAP 14 (5-13); BLOOD UREA NITROGEN 22 mg/dl (7-20); CALCIUM 8.6 mg/dl (8.4-10.2); CARBON DIOXIDE 26 mmol/L (21-31); CHLORIDE 101 mmol/L (97-110); CREATININE 0.88 mg/dl (0.61-1.24); Estimated GFR > 60 mL/min (>60); GLUCOSE 156 mg/dl (70-220); MAGNESIUM 2.1 mg/dl (1.7-2.5); PHOSPHORUS 2.2 mg/dl (2.5-4.9); POTASSIUM 3.1 mmol/L (3.5-5.1); SODIUM 141 mmol/L (135-144)
[2018-09-24] MEDS: PANTOPRAZOLE 40 MG INJ IV (06:06)
[2018-09-24] MEDS: FUROSEMIDE 40 MG INJ IV (06:06)
[2018-09-24] MEDS: NEUTRA-PHOS 250 MG PACKET PO (08:41)
[2018-09-24] MEDS: ASPIRIN 81 MG TAB NGT (08:42)
[2018-09-24] MEDS: GUAIFENESIN LA 600 MG TABSR PO ×2 (08:42→21:24)
[2018-09-24] MEDS: DOXYCYCLINE 100 MG TAB PO ×2 (08:42→21:24)
[2018-09-24] MEDS: POTASSIUM CHLORIDE (SR) 20 MEQ TAB PO (08:42)
[2018-09-24] MEDS: METOPROLOL (XL) 25 MG TAB PO (08:42)
[2018-09-24] MEDS: CEFEPIME 1GM/50 ML (PMX) 50 ML IVPB ×2 (08:43→21:10)
[2018-09-24] MEDS: LISINOPRIL 5 MG TAB PO (08:43)
[2018-09-24] MEDS: INSULIN ASPART [NOVOLOG] 3 ML PEN SC ×7 (08:45→21:00)
[2018-09-24] MEDS: INSULIN GLARGINE [LANTus] (100 UNITS/ML) SYG SC (08:45)
[2018-09-24] MEDS ORDERED: ALBUTEROL 0.083% (NEB) 2.5 MG/3 ML AMP HHN (09:00)
[2018-09-24] MEDS: morphine 2 MG INJ IV (15:23)
[2018-09-24] MEDS: ENALAPRILAT 1.25 MG INJ IV (19:38)
[2018-09-24] MEDS: ATORVASTATIN 40 MG TAB PO (21:24)
[2018-09-24] MEDS: LISINOPRIL 10 MG TAB PO (21:25)
[2018-09-24] MEDS: hydrALAzine 20 MG INJ IV (23:51)
[2018-09-25] MEDS: ONDANSETRON 4 MG INJ IV (00:40)
[2018-09-25] MEDS: ALBUTEROL/IPRATROPIUM (NEB) 3 ML AMP HHN ×4 (01:54→19:50)
[2018-09-25] MEDS: ACCU-CHEK XX (02:05)
[2018-09-25 05:07] LABS: ADD MAN DIFF? NO
[2018-09-25] MEDS: PANTOPRAZOLE 40 MG INJ IV (05:12)
[2018-09-25] MEDS: FUROSEMIDE 40 MG INJ IV (05:14)
[2018-09-25 05:25] LABS: BASOPHILS % 0.2 % (0.0-2.0); EOSINOPHILS # 0.1 10^3/ul (0.0-0.5); EOSINOPHILS % 0.5 % (0.0-7.0); HEMATOCRIT 42.4 % (42.0-52.0); HEMOGLOBIN 14.5 g/dl (14.0-18.0); LYMPHOCYTES # 1.2 10^3/ul (0.8-2.9); LYMPHOCYTES % 8.8 % (15.0-51.0); MEAN CORPUSCULAR HEMOGLOBIN 28.7 pg (29.0-33.0); MEAN CORPUSCULAR HGB CONC 34.2 g/dl (32.0-37.0); MEAN PLATELET VOLUME 9.2 fl (7.4-10.4); MONOCYTE # 0.9 10^3/ul (0.3-0.9); MONOCYTES % 7.1 % (0.0-11.0); NEUTROPHIL # 10.8 10^3/ul (1.6-7.5); NEUTROPHILS % 82.3 % (39.0-77.0); PLATELET COUNT 281 10^3/UL (140-415); RED BLOOD COUNT 5.05 10^6/ul (4.70-6.10); RED CELL DISTRIBUTION WIDTH 13.2 % (11.5-14.5)
[2018-09-25 05:25] LABS: WHITE BLOOD COUNT 13.2 10^3/ul (4.8-10.8)
[2018-09-25 05:40] LABS: ALANINE AMINOTRANSFERASE 229 IU/L (13-69); ALBUMIN 3.5 g/dl (3.3-4.9); ALBUMIN/GLOBULIN RATIO 0.94; ALKALINE PHOSPHATASE 211 IU/L (42-121); ANION GAP 11 (5-13); ASPARTATE AMINO TRANSFERASE 151 IU/L (15-46); BILIRUBIN,INDIRECT 2.1 mg/dl (0-1.1); BILIRUBIN,TOTAL 2.8 mg/dl (0.2-1.3); BLOOD UREA NITROGEN 22 mg/dl (7-20); CARBON DIOXIDE 30 mmol/L (21-31); CHLORIDE 99 mmol/L (97-110); CREATININE 0.86 mg/dl (0.61-1.24); Estimated GFR > 60 mL/min (>60); GLUCOSE 154 mg/dl (70-220); POTASSIUM 3.1 mmol/L (3.5-5.1); SODIUM 140 mmol/L (135-144); TOTAL PROTEIN 7.2 g/dl (6.1-8.1)
[2018-09-25 05:43] LABS: B-TYPE NATRIURETIC PEPTIDE 4810 PG/ML (0-125)
[2018-09-25 05:58] LABS: PHOSPHORUS 2.8 mg/dl (2.5-4.9)
[2018-09-25 05:58] LABS: MAGNESIUM 1.9 mg/dl (1.7-2.5)
[2018-09-25] MEDS: INSULIN ASPART [NOVOLOG] 3 ML PEN SC ×7 (08:00→20:43)
[2018-09-25] MEDS: METOPROLOL (XL) 50 MG TAB PO (08:14)
[2018-09-25] MEDS: DOXYCYCLINE 100 MG TAB PO (08:14)
[2018-09-25] MEDS: GUAIFENESIN LA 600 MG TABSR PO ×2 (08:14→20:30)
[2018-09-25] MEDS: CEFEPIME 1GM/50 ML (PMX) 50 ML IVPB (08:14)
[2018-09-25] MEDS: ASPIRIN 81 MG TAB NGT (08:14)
[2018-09-25] MEDS: LISINOPRIL 10 MG TAB PO ×2 (08:15→20:30)
[2018-09-25] MEDS: POTASSIUM CHLORIDE (SR) 20 MEQ TAB PO (08:26)
[2018-09-25] MEDS: ENOXAPARIN 30 MG/0.3 ML SYG SC (08:40)
[2018-09-25] MEDS: INSULIN GLARGINE [LANTus] (100 UNITS/ML) SYG SC (08:40)
[2018-09-25] MEDS ORDERED: POTASSIUM CHLORIDE (SR) 20 MEQ TAB PO (11:50)
[2018-09-25] MEDS: SPIRONOLACTONE 25 MG TAB PO (12:17)
[2018-09-25] MEDS: MAGNESIUM SULFATE 2 GM/50 ML 50 ML IVPB (12:32)
[2018-09-25] MEDS: ATORVASTATIN 40 MG TAB PO (20:30)
[2018-09-25] MEDS ORDERED: morphine LIQ (10 MG/5 ML) CUP PO ×2 (23:45)
[2018-09-26] MEDS: ALBUTEROL/IPRATROPIUM (NEB) 3 ML AMP HHN ×4 (01:31→20:33)
[2018-09-26] MEDS: ACCU-CHEK XX (02:08)
[2018-09-26 06:24] LABS: ADD MAN DIFF? NO
[2018-09-26 06:25] LABS: BASOPHILS % 0.3 % (0.0-2.0); EOSINOPHILS # 0.1 10^3/ul (0.0-0.5); EOSINOPHILS % 0.9 % (0.0-7.0); HEMATOCRIT 42.3 % (42.0-52.0); LYMPHOCYTES # 1.1 10^3/ul (0.8-2.9); LYMPHOCYTES % 10.3 % (15.0-51.0); MEAN CORPUSCULAR HEMOGLOBIN 28.6 pg (29.0-33.0); MEAN CORPUSCULAR HGB CONC 33.1 g/dl (32.0-37.0); MEAN CORPUSCULAR VOLUME 86.3 fl (82.0-101.0); MEAN PLATELET VOLUME 9.4 fl (7.4-10.4); MONOCYTE # 0.7 10^3/ul (0.3-0.9); MONOCYTES % 6.8 % (0.0-11.0); NEUTROPHIL # 8.5 10^3/ul (1.6-7.5); NEUTROPHILS % 80.7 % (39.0-77.0); PLATELET COUNT 293 10^3/UL (140-415); RED CELL DISTRIBUTION WIDTH 13.3 % (11.5-14.5)
[2018-09-26 06:25] LABS: WHITE BLOOD COUNT 10.5 10^3/ul (4.8-10.8)
[2018-09-26] MEDS: PANTOPRAZOLE 40 MG INJ IV (06:34)
[2018-09-26] MEDS: FUROSEMIDE 40 MG INJ IV (06:34)
[2018-09-26 07:07] LABS: ALANINE AMINOTRANSFERASE 180 IU/L (13-69); ALBUMIN 3.6 g/dl (3.3-4.9); ALKALINE PHOSPHATASE 213 IU/L (42-121); ANION GAP 11 (5-13); ASPARTATE AMINO TRANSFERASE 114 IU/L (15-46); BILIRUBIN,INDIRECT 1.9 mg/dl (0-1.1); BILIRUBIN,TOTAL 2.1 mg/dl (0.2-1.3); BLOOD UREA NITROGEN 21 mg/dl (7-20); CALCIUM 9.2 mg/dl (8.4-10.2); CARBON DIOXIDE 29 mmol/L (21-31); CHLORIDE 99 mmol/L (97-110); CREATININE 0.82 mg/dl (0.61-1.24); Estimated GFR > 60 mL/min (>60); GLUCOSE 161 mg/dl (70-220); POTASSIUM 3.3 mmol/L (3.5-5.1); SODIUM 139 mmol/L (135-144); TOTAL PROTEIN 7.6 g/dl (6.1-8.1)
[2018-09-26 07:22] LABS: PHOSPHORUS 3.2 mg/dl (2.5-4.9)
[2018-09-26 07:22] LABS: MAGNESIUM 2.1 mg/dl (1.7-2.5)
[2018-09-26] MEDS: GUAIFENESIN LA 600 MG TABSR PO ×2 (08:56→20:20)
[2018-09-26] MEDS: POTASSIUM CHLORIDE (SR) 20 MEQ TAB PO ×2 (08:56→12:07)
[2018-09-26] MEDS: ASPIRIN 81 MG TAB NGT (08:56)
[2018-09-26] MEDS: SPIRONOLACTONE 25 MG TAB PO (08:57)
[2018-09-26] MEDS: BUMETANIDE 1 MG TAB PO (08:57)
[2018-09-26] MEDS: METOPROLOL (XL) 50 MG TAB PO (08:57)
[2018-09-26] MEDS: LISINOPRIL 10 MG TAB PO (08:57)
[2018-09-26] MEDS: INSULIN ASPART [NOVOLOG] 3 ML PEN SC ×7 (09:27→20:21)
[2018-09-26] MEDS: INSULIN GLARGINE [LANTus] (100 UNITS/ML) SYG SC (09:28)
[2018-09-26] MEDS: ENOXAPARIN 30 MG/0.3 ML SYG SC (09:28)
[2018-09-26] MEDS: LISINOPRIL 20 MG TAB PO (20:20)
[2018-09-26] MEDS: ATORVASTATIN 40 MG TAB PO (20:20)
[2018-09-27] MEDS: ALBUTEROL/IPRATROPIUM (NEB) 3 ML AMP HHN ×4 (01:29→19:49)
[2018-09-27] MEDS: ACCU-CHEK XX (02:00)
[2018-09-27] MEDS: PANTOPRAZOLE (EC) 40 MG TAB PO (05:38)
[2018-09-27 07:15] LABS: PHOSPHORUS 3.7 mg/dl (2.5-4.9)
[2018-09-27 07:15] LABS: MAGNESIUM 1.8 mg/dl (1.7-2.5)
[2018-09-27 07:17] LABS: ALANINE AMINOTRANSFERASE 182 IU/L (13-69); ALBUMIN 3.7 g/dl (3.3-4.9); ALBUMIN/GLOBULIN RATIO 0.88; ALKALINE PHOSPHATASE 200 IU/L (42-121); ANION GAP 8 (5-13); ASPARTATE AMINO TRANSFERASE 154 IU/L (15-46); BILIRUBIN,TOTAL 2.1 mg/dl (0.2-1.3); BLOOD UREA NITROGEN 23 mg/dl (7-20); CALCIUM 9.7 mg/dl (8.4-10.2); CARBON DIOXIDE 31 mmol/L (21-31); CHLORIDE 95 mmol/L (97-110); CREATININE 0.87 mg/dl (0.61-1.24); Estimated GFR > 60 mL/min (>60); GLUCOSE 209 mg/dl (70-220); POTASSIUM 4.1 mmol/L (3.5-5.1); SODIUM 134 mmol/L (135-144); TOTAL PROTEIN 7.9 g/dl (6.1-8.1)
[2018-09-27] MEDS: BUMETANIDE 1 MG TAB PO (08:29)
[2018-09-27] MEDS: METOPROLOL (XL) 50 MG TAB PO (08:29)
[2018-09-27] MEDS: ASPIRIN 81 MG TAB NGT (08:30)
[2018-09-27] MEDS: LISINOPRIL 20 MG TAB PO ×2 (08:30→20:17)
[2018-09-27] MEDS: GUAIFENESIN LA 600 MG TABSR PO ×2 (08:30→20:17)
[2018-09-27] MEDS: SPIRONOLACTONE 25 MG TAB PO (08:30)
[2018-09-27] MEDS: ENOXAPARIN 30 MG/0.3 ML SYG SC (08:37)
[2018-09-27] MEDS: INSULIN ASPART [NOVOLOG] 3 ML PEN SC ×7 (08:37→20:17)
[2018-09-27] MEDS: INSULIN GLARGINE [LANTus] (100 UNITS/ML) SYG SC (08:37)
[2018-09-27 14:13] LABS: AADO2 Arterial 47.6 mmHg (7.0-24.0); Allen Test ACCEPTAB; Arterial Base Excess 6.4 mmol/L (-3.0-3); Arterial Blood Gas Oxygen Sat 92.9 mmHG (95.0-98.0); Arterial COHb 0.6 % (0.0-3.0); Arterial Fraction of Oxyhgb 92.2 % (93.0-99.0); Arterial HCO3 28.7 mmol/L (22.0-26.0); Arterial MetHb 0.2 % (0.0-1.5); Arterial pCO2 33.9 mmhg (35-45); MODE ROOM AIR; Site Right Radial
[2018-09-27] MEDS ORDERED: GUAIFENESIN/CODEINE 5ML CUP PO (14:30)
[2018-09-27] MEDS: ATORVASTATIN 40 MG TAB PO (20:17)
[2018-09-28] MEDS: ALBUTEROL/IPRATROPIUM (NEB) 3 ML AMP HHN ×4 (01:46→19:20)
[2018-09-28] MEDS: ACCU-CHEK XX (02:00)
[2018-09-28] MEDS: PANTOPRAZOLE (EC) 40 MG TAB PO (05:47)
[2018-09-28 06:43] LABS: PHOSPHORUS 4.4 mg/dl (2.5-4.9)
[2018-09-28 06:43] LABS: MAGNESIUM 1.8 mg/dl (1.7-2.5)
[2018-09-28] MEDS: POLYETHYLENE GLYCOL 17 GM PACKET GTB (06:51)
[2018-09-28] MEDS: DOCUSATE SODIUM 100 MG CAP PO ×2 (06:51→20:09)
[2018-09-28 07:06] LABS: ALANINE AMINOTRANSFERASE 164 IU/L (13-69); ALBUMIN 3.6 g/dl (3.3-4.9); ALBUMIN/GLOBULIN RATIO 0.81; ALKALINE PHOSPHATASE 198 IU/L (42-121); ANION GAP 12 (5-13); ASPARTATE AMINO TRANSFERASE 116 IU/L (15-46); BILIRUBIN,INDIRECT 1.9 mg/dl (0-1.1); BILIRUBIN,TOTAL 1.9 mg/dl (0.2-1.3); BLOOD UREA NITROGEN 27 mg/dl (7-20); CALCIUM 9.4 mg/dl (8.4-10.2); CARBON DIOXIDE 32 mmol/L (21-31); CHLORIDE 92 mmol/L (97-110); CREATININE 1.02 mg/dl (0.61-1.24); Estimated GFR > 60 mL/min (>60); GLUCOSE 202 mg/dl (70-220); POTASSIUM 3.9 mmol/L (3.5-5.1); SODIUM 136 mmol/L (135-144)
[2018-09-28] MEDS: ASPIRIN 81 MG TAB NGT (08:00)
[2018-09-28] MEDS: GUAIFENESIN LA 600 MG TABSR PO ×2 (08:00→20:09)
[2018-09-28] MEDS: LISINOPRIL 20 MG TAB PO (08:00)
[2018-09-28] MEDS: SPIRONOLACTONE 25 MG TAB PO (08:00)
[2018-09-28] MEDS: BUMETANIDE 1 MG TAB PO (08:00)
[2018-09-28] MEDS: METOPROLOL (XL) 50 MG TAB PO (08:01)
[2018-09-28] MEDS: INSULIN ASPART [NOVOLOG] 3 ML PEN SC ×7 (08:05→20:11)
[2018-09-28] MEDS: INSULIN GLARGINE [LANTus] (100 UNITS/ML) SYG SC (08:05)
[2018-09-28] MEDS: ENOXAPARIN 30 MG/0.3 ML SYG SC (08:05)
[2018-09-28] MEDS: ACETAMINOPHEN 325 MG TAB PO (09:53)
[2018-09-28] MEDS: BENZONATATE 100 MG CAP PO (16:04)
[2018-09-28] MEDS: ATORVASTATIN 40 MG TAB PO (20:09)
[2018-09-29] MEDS: ALBUTEROL/IPRATROPIUM (NEB) 3 ML AMP HHN ×4 (01:20→23:43)
[2018-09-29] MEDS: ACCU-CHEK XX (02:00)
[2018-09-29] MEDS: PANTOPRAZOLE (EC) 40 MG TAB PO (06:04)
[2018-09-29] MEDS: BENZONATATE 100 MG CAP PO (06:21)
[2018-09-29] MEDS: INSULIN ASPART [NOVOLOG] 3 ML PEN SC ×7 (08:00→20:18)
[2018-09-29] MEDS: GUAIFENESIN LA 600 MG TABSR PO ×2 (08:39→20:13)
[2018-09-29] MEDS: ACETAMINOPHEN 325 MG TAB PO (08:40)
[2018-09-29] MEDS: METOPROLOL (XL) 50 MG TAB PO (08:40)
[2018-09-29] MEDS: BUMETANIDE 1 MG TAB PO (08:41)
[2018-09-29] MEDS: LOSARTAN 25 MG TAB PO (08:41)
[2018-09-29] MEDS: DOCUSATE SODIUM 100 MG CAP PO ×2 (08:41→20:13)
[2018-09-29] MEDS: ASPIRIN 81 MG TAB NGT (08:41)
[2018-09-29] MEDS: POLYETHYLENE GLYCOL 17 GM PACKET GTB (08:42)
[2018-09-29] MEDS: SPIRONOLACTONE 25 MG TAB PO (08:42)
[2018-09-29] MEDS: ENOXAPARIN 30 MG/0.3 ML SYG SC (09:02)
[2018-09-29] MEDS: INSULIN GLARGINE [LANTus] (100 UNITS/ML) SYG SC (10:44)
[2018-09-29] MEDS: ATORVASTATIN 40 MG TAB PO (20:13)
[2018-09-29] MEDS: ACETAMINOPHEN 650MG/20.3ML CUP NGT (22:36)
[2018-09-30 06:15] LABS: ADD MAN DIFF? NO
[2018-09-30 06:18] LABS: BASOPHILS % 0.3 % (0.0-2.0); EOSINOPHILS # 0.3 10^3/ul (0.0-0.5); EOSINOPHILS % 2.8 % (0.0-7.0); HEMATOCRIT 43.2 % (42.0-52.0); HEMOGLOBIN 14.1 g/dl (14.0-18.0); LYMPHOCYTES # 2.1 10^3/ul (0.8-2.9); MEAN CORPUSCULAR HEMOGLOBIN 28.2 pg (29.0-33.0); MEAN CORPUSCULAR HGB CONC 32.6 g/dl (32.0-37.0); MEAN CORPUSCULAR VOLUME 86.4 fl (82.0-101.0); MEAN PLATELET VOLUME 9.9 fl (7.4-10.4); MONOCYTE # 0.9 10^3/ul (0.3-0.9); MONOCYTES % 9.5 % (0.0-11.0); NEUTROPHIL # 6.1 10^3/ul (1.6-7.5); NEUTROPHILS % 64.7 % (39.0-77.0); PLATELET COUNT 254 10^3/UL (140-415); RED CELL DISTRIBUTION WIDTH 12.9 % (11.5-14.5)
[2018-09-30 06:18] LABS: WHITE BLOOD COUNT 9.5 10^3/ul (4.8-10.8)
[2018-09-30] MEDS: PANTOPRAZOLE (EC) 40 MG TAB PO (06:37)
[2018-09-30 06:59] LABS: ALANINE AMINOTRANSFERASE 136 IU/L (13-69); ALBUMIN 3.5 g/dl (3.3-4.9); ALBUMIN/GLOBULIN RATIO 0.83; ALKALINE PHOSPHATASE 159 IU/L (42-121); ANION GAP 12 (5-13); ASPARTATE AMINO TRANSFERASE 111 IU/L (15-46); BILIRUBIN,INDIRECT 1.6 mg/dl (0-1.1); BILIRUBIN,TOTAL 1.6 mg/dl (0.2-1.3); BLOOD UREA NITROGEN 37 mg/dl (7-20); CALCIUM 9.4 mg/dl (8.4-10.2); CARBON DIOXIDE 31 mmol/L (21-31); CHLORIDE 93 mmol/L (97-110); CREATININE 1.04 mg/dl (0.61-1.24); Estimated GFR > 60 mL/min (>60); GLUCOSE 127 mg/dl (70-220); POTASSIUM 4.5 mmol/L (3.5-5.1); SODIUM 136 mmol/L (135-144); TOTAL PROTEIN 7.7 g/dl (6.1-8.1)
[2018-09-30 07:14] LABS: PHOSPHORUS 3.8 mg/dl (2.5-4.9)
[2018-09-30 07:14] LABS: MAGNESIUM 1.9 mg/dl (1.7-2.5)
[2018-09-30] MEDS: INSULIN ASPART [NOVOLOG] 3 ML PEN SC ×4 (08:45→12:54)
[2018-09-30] MEDS: METOPROLOL (XL) 50 MG TAB PO (09:00)
[2018-09-30] MEDS: LOSARTAN 25 MG TAB PO (09:00)
[2018-09-30] MEDS: INSULIN GLARGINE [LANTus] (100 UNITS/ML) SYG SC (09:01)
[2018-09-30] MEDS: ENOXAPARIN 30 MG/0.3 ML SYG SC (09:01)
[2018-09-30] MEDS: POLYETHYLENE GLYCOL 17 GM PACKET GTB (09:02)
[2018-09-30] MEDS: SPIRONOLACTONE 25 MG TAB PO (09:02)
[2018-09-30] MEDS: GUAIFENESIN LA 600 MG TABSR PO (09:03)
[2018-09-30] MEDS: ASPIRIN 81 MG TAB NGT (09:03)
[2018-09-30] MEDS: DOCUSATE SODIUM 100 MG CAP PO (09:03)
[2018-09-30] MEDS: BUMETANIDE 1 MG TAB PO (09:08)
== END 2018-09-30 15:52 | disposition home health service (06) | DRG 233 ==
LOC: 6WM 04:15 → ICU 09-17 18:52 → 6WM 09-24 14:53 → MS1 09-29 21:52
PROVIDERS: Internal Medicine
PROC: 021109W Bypass Coronary Artery, Two Arteries from Aorta with Autologous Venous Tissue, Open Approach (ICD-10-PCS; principal; 2018-09-14 14:56)
PROC: 4A023N7 Measurement of Cardiac Sampling and Pressure, Left Heart, Percutaneous Approach (ICD-10-PCS; 2018-09-14 14:56)
PROC: 06BP0ZZ Excision of Right Saphenous Vein, Open Approach (ICD-10-PCS; 2018-09-14 14:56)
PROC: 02100Z9 Bypass Coronary Artery, One Artery from Left Internal Mammary, Open Approach (ICD-10-PCS; 2018-09-14 14:56)
PROC: 0W9B3ZX Drainage of Left Pleural Cavity, Percutaneous Approach, Diagnostic (ICD-10-PCS; 2018-09-14 14:56)
PROC: B211YZZ Fluoroscopy of Multiple Coronary Arteries using Other Contrast (ICD-10-PCS; 2018-09-14 14:56)
PROC: B241ZZ3 Ultrasonography of Multiple Coronary Arteries, Intravascular (ICD-10-PCS; 2018-09-14 14:56)
PROC: 5A1221Z Performance of Cardiac Output, Continuous (ICD-10-PCS; 2018-09-14 14:56)
PROC: 02HP32Z Insertion of Monitoring Device into Pulmonary Trunk, Percutaneous Approach (ICD-10-PCS; 2018-09-14 14:56)
PROC: 30233N1 Transfusion of Nonautologous Red Blood Cells into Peripheral Vein, Percutaneous Approach (ICD-10-PCS; 2018-09-14 14:56)
PROC: 30233R1 Transfusion of Nonautologous Platelets into Peripheral Vein, Percutaneous Approach (ICD-10-PCS; 2018-09-14 14:56)
PROC: 30233K1 Transfusion of Nonautologous Frozen Plasma into Peripheral Vein, Percutaneous Approach (ICD-10-PCS; 2018-09-14 14:56)
DX: I25.110 Atherosclerotic heart disease of native coronary artery with unstable angina pectoris (principal); R57.0 Cardiogenic shock; J95.821 Acute postprocedural respiratory failure; T81.11XA Postprocedural cardiogenic shock, initial encounter; N17.9 Acute kidney failure, unspecified; E87.0 Hyperosmolality and hypernatremia; J90 Pleural effusion, not elsewhere classified; E11.65 Type 2 diabetes mellitus with hyperglycemia; Y83.2 Surgical operation with anastomosis, bypass or graft as the cause of abnormal reaction of the patient, or of later complication, without mention of misadventure at the time of the procedure; E87.6 Hypokalemia; R50.82 Postprocedural fever; R13.10 Dysphagia, unspecified; D64.9 Anemia, unspecified; I11.0 Hypertensive heart disease with heart failure; I50.9 Heart failure, unspecified; Z87.891 Personal history of nicotine dependence; Z79.4 Long term (current) use of insulin
CPT/HCPCS: 36430; 36592; 36600; 71045; 71250; 76705; 76942; 80048; 80053; 80069; 80202; 81001; 81003; 82043; 82550; 82553; 82803; 82945; 82962; 83036; 83615; 83735; 83880; 83935; 84100; 84132; 84155; 84157; 84300; 84484; 85025; 85049; 85576; 85610; 85730; 86644; 86850; 86900; 86901; 86920; 87040; 87070; 87081; 87086; 87102; 87116; 88104; 88305; 89051; 92526; 92610; 92978; 93005; 93306; 93454; 93880; 94002; 94003; 94640; 94664; 94770; 97116; 97163; 97530

== ENCOUNTER 2018-10-12 16:57 | Inpatient (IN) | payer OTHER ==
[2018-10-12] MEDS ORDERED: NACL 0.9% 3 ML SYG IV (17:30)
[2018-10-12] MEDS ORDERED: HYDROCODONE/APAP (5/325) TAB PO (17:30)
[2018-10-12] MEDS: BUMETANIDE 1 MG INJ IV (18:27)
[2018-10-12] MEDS ORDERED: BENZONATATE 100 MG CAP PO (18:30)
[2018-10-12] MEDS ORDERED: GLUCOSE GEL 15 GRAM TUBE PO ×2 (19:00)
[2018-10-12] MEDS ORDERED: GLUCAGON 1 MG INJ IM (19:00)
[2018-10-12] MEDS ORDERED: GLUCOSE GEL 15 GRAM TUBE BUCCAL (19:00)
[2018-10-12] MEDS ORDERED: DEXTROSE 50% 50 ML SYRINGE IV ×2 (19:00)
[2018-10-12 19:08] LABS: CREATINE KINASE 33 IU/L (23-200)
[2018-10-12 19:20] LABS: CK INDEX 1.6; CK-MB 0.52 ng/ml (0.0-2.4); TROPONIN-I 0.052 ng/ml (0.000-0.120)
[2018-10-12] MEDS ORDERED: INSULIN GLARGINE [LANTus] (100 UNITS/ML) SYG SC (20:00)
[2018-10-12] MEDS: INSULIN GLARGINE [LANTus] (100 UNITS/ML) SYG SC (20:00)
[2018-10-12] MEDS: ATORVASTATIN 40 MG TAB PO (21:00)
[2018-10-12] MEDS: INSULIN ASPART [NOVOLOG] 3 ML PEN SC (22:33)
[2018-10-13] MEDS ORDERED: morphine 2 MG INJ IV (04:30)
[2018-10-13] MEDS: BUMETANIDE 1 MG INJ IV ×2 (06:31→17:47)
[2018-10-13 06:54] LABS: ADD MAN DIFF? NO
[2018-10-13 06:58] LABS: WHITE BLOOD COUNT 7.8 10^3/ul (4.8-10.8)
[2018-10-13 06:58] LABS: BASOPHILS % 0.5 % (0.0-2.0); EOSINOPHILS # 0.6 10^3/ul (0.0-0.5); EOSINOPHILS % 7.3 % (0.0-7.0); HEMATOCRIT 43.9 % (42.0-52.0); HEMOGLOBIN 14.6 g/dl (14.0-18.0); LYMPHOCYTES # 2.5 10^3/ul (0.8-2.9); LYMPHOCYTES % 31.5 % (15.0-51.0); MEAN CORPUSCULAR HEMOGLOBIN 28.1 pg (29.0-33.0); MEAN CORPUSCULAR HGB CONC 33.3 g/dl (32.0-37.0); MEAN CORPUSCULAR VOLUME 84.4 fl (82.0-101.0); MEAN PLATELET VOLUME 10.9 fl (7.4-10.4); MONOCYTE # 0.6 10^3/ul (0.3-0.9); MONOCYTES % 7.4 % (0.0-11.0); NEUTROPHIL # 4.2 10^3/ul (1.6-7.5); PLATELET COUNT 118 10^3/UL (140-415); RED CELL DISTRIBUTION WIDTH 12.5 % (11.5-14.5)
[2018-10-13 07:18] LABS: ALANINE AMINOTRANSFERASE 45 IU/L (13-69); ALBUMIN 3.8 g/dl (3.3-4.9); ALBUMIN/GLOBULIN RATIO 0.95; ALKALINE PHOSPHATASE 166 IU/L (42-121); ANION GAP 12 (5-13); ASPARTATE AMINO TRANSFERASE 43 IU/L (15-46); BLOOD UREA NITROGEN 42 mg/dl (7-20); CALCIUM 9.8 mg/dl (8.4-10.2); CARBON DIOXIDE 30 mmol/L (21-31); CHLORIDE 95 mmol/L (97-110); CREATININE 0.92 mg/dl (0.61-1.24); Estimated GFR > 60 mL/min (>60); GLUCOSE 183 mg/dl (70-220); POTASSIUM 4.5 mmol/L (3.5-5.1); SODIUM 137 mmol/L (135-144); TOTAL PROTEIN 7.8 g/dl (6.1-8.1)
[2018-10-13 07:23] LABS: CREATINE KINASE 28 IU/L (23-200)
[2018-10-13 07:30] LABS: CK INDEX 2.2; CK-MB 0.61 ng/ml (0.0-2.4); TROPONIN-I 0.068 ng/ml (0.000-0.120)
[2018-10-13] MEDS: INSULIN ASPART [NOVOLOG] 3 ML PEN SC ×8 (07:55→21:00)
[2018-10-13 07:56] LABS: HEMOGLOBIN A1C 9.1 % (0-5.9)
[2018-10-13] MEDS: ASPIRIN 81 MG TAB PO (08:14)
[2018-10-13] MEDS: metFORMIN 500 MG TAB PO ×2 (08:14→17:46)
[2018-10-13] MEDS: LOSARTAN 25 MG TAB PO (08:15)
[2018-10-13] MEDS: METOPROLOL (XL) 50 MG TAB PO (08:15)
[2018-10-13] MEDS: SPIRONOLACTONE 25 MG TAB PO (08:15)
[2018-10-13] MEDS: ACETAMINOPHEN 325 MG TAB PO ×2 (11:49→23:40)
[2018-10-13 17:41] LABS: INR 1.01; PROTIME 13.4 Sec (11.9-14.9)
[2018-10-13] MEDS: INSULIN GLARGINE [LANTus] (100 UNITS/ML) SYG SC (21:27)
[2018-10-13] MEDS: ATORVASTATIN 40 MG TAB PO (21:29)
[2018-10-14] MEDS: BUMETANIDE 1 MG INJ IV ×2 (06:31→18:46)
[2018-10-14 06:57] LABS: ANION GAP 14 (5-13); BLOOD UREA NITROGEN 48 mg/dl (7-20); CALCIUM 9.6 mg/dl (8.4-10.2); CARBON DIOXIDE 28 mmol/L (21-31); CHLORIDE 95 mmol/L (97-110); CREATININE 0.86 mg/dl (0.61-1.24); Estimated GFR > 60 mL/min (>60); GLUCOSE 133 mg/dl (70-220); POTASSIUM 4.4 mmol/L (3.5-5.1); SODIUM 137 mmol/L (135-144)
[2018-10-14] MEDS: INSULIN ASPART [NOVOLOG] 3 ML PEN SC ×7 (07:55→21:39)
[2018-10-14] MEDS: metFORMIN 500 MG TAB PO ×2 (08:16→18:46)
[2018-10-14] MEDS: SPIRONOLACTONE 25 MG TAB PO (08:19)
[2018-10-14] MEDS: METOPROLOL (XL) 50 MG TAB PO (08:19)
[2018-10-14] MEDS: ASPIRIN 81 MG TAB PO (08:20)
[2018-10-14] MEDS: LOSARTAN 25 MG TAB PO (08:20)
[2018-10-14] MEDS: ONDANSETRON 4 MG INJ IV (10:26)
[2018-10-14] MEDS: AL HYDROX/MG HYDROX/SIMETH 30 ML CUP PO (15:08)
[2018-10-14] MEDS: INSULIN GLARGINE [LANTus] (100 UNITS/ML) SYG SC (21:35)
[2018-10-14] MEDS: ATORVASTATIN 40 MG TAB PO (21:37)
[2018-10-15] MEDS: BUMETANIDE 1 MG INJ IV ×2 (06:48→17:38)
[2018-10-15] MEDS: INSULIN ASPART [NOVOLOG] 3 ML PEN SC ×7 (07:55→20:04)
[2018-10-15] MEDS: METOPROLOL (XL) 50 MG TAB PO (08:19)
[2018-10-15] MEDS: metFORMIN 500 MG TAB PO ×2 (08:19→17:38)
[2018-10-15] MEDS: LOSARTAN 25 MG TAB PO (08:19)
[2018-10-15] MEDS: ASPIRIN 81 MG TAB PO (08:19)
[2018-10-15] MEDS: SPIRONOLACTONE 25 MG TAB PO (08:19)
[2018-10-15] MEDS: ONDANSETRON 4 MG INJ IV (08:42)
[2018-10-15] MEDS: INSULIN GLARGINE [LANTus] (100 UNITS/ML) SYG SC (20:00)
[2018-10-15] MEDS: ATORVASTATIN 40 MG TAB PO (20:02)
== END 2018-10-15 20:24 | disposition home or self-care (01) | DRG 280 ==
LOC: TEL 16:57
DX: I21.4 Non-ST elevation (NSTEMI) myocardial infarction (principal); I50.23 Acute on chronic systolic (congestive) heart failure; J90 Pleural effusion, not elsewhere classified; I11.0 Hypertensive heart disease with heart failure; I25.10 Atherosclerotic heart disease of native coronary artery without angina pectoris; E11.8 Type 2 diabetes mellitus with unspecified complications; D64.9 Anemia, unspecified; R07.89 Other chest pain; Z79.4 Long term (current) use of insulin; Z95.1 Presence of aortocoronary bypass graft; Z79.82 Long term (current) use of aspirin; Z87.891 Personal history of nicotine dependence
CPT/HCPCS: 71046; 76942; 80048; 80053; 82550; 82553; 82962; 83036; 84484; 85025; 85610; 93970